=== PATIENT | male | born 1935 | race Caucasian/White ===

== ENCOUNTER → 2017-03-17 | Outpatient (CLI) | payer MEDICARE ==
[~2017-03-17] MED LIST: AMARYL1 MG PO; ASPIRIN CHILDRE81 MG PO; CARVEDILOL6.25 MG PO; CLEOCIN HCL150 MG PO; CORDARONE200 MG PO; COUMADIN0.5 MG PO; COUMADIN3 M1 PO; COUMADIN4 M2 PO; COZAAR25 M1 PO; DULCOLAX10 MG R; FERROUS SULFAT325 M1 PO; FLEET ADULT ENEM1 EA R; FUROSEMIDE40 MG PO; KLOR-CON M2020 MEQ PO; LEVAQUIN750 M1 PO; LIPITOR10 MG PO; LIPITOR20 MG PO; LOPRESSOR25 MG PO; MOM30 ML PO; NOVOLOG 70/30 M10 ML SC; NYSTATIN100000 U/M PO; PREDNISONE10 MG PO; PROTONIX40 MG PO; ROXICODONE5 MG PO
[2017-03-17 12:56] LABS: BILIRUBIN NEGATIVE (NEGATIVE); BLOOD 1+ (NEGATIVE); CLARITY CLEAR (CLEAR); COLOR YELLOW (YELLOW); GLUCOSE NEGATIVE (NEGATIVE); KETONE TRACE (NEGATIVE); NITRITE NEGATIVE (NEGATIVE); PH 5.5 (5.0-9.0); PROTEIN TRACE (NEGATIVE); UROBILINOGEN 0.2 E.U./dl (0.2-1.0)
[2017-03-17 13:05] LABS: BASO % 0.4 % (0.0-1.0); EOS # 0.2 10*3/uL (0.0-0.4); EOS % 1.9 % (1.0-4.0); HEMATOCRIT 39.6 % (42.0-52.0); LYMPH # 1.5 10*3/uL (1.3-4.4); LYMPH % 18.6 % (27.0-41.0); MEAN CELL VOLUME 94.3 fl (80.0-94.0); MEAN CORPUSCULAR HGB CONC 32.8 g/dl (33.0-37.0); MEAN PLATELET VOLUME 10.1 fl (9.6-12.3); MONO # 0.8 10*3/uL (0.1-1.0); MONO % 10.1 % (3.0-9.0); NEUT # 5.5 10*3/uL (2.3-7.9); NEUT % 68.7 % (47.0-73.0); PLATELET COUNT AUTOMATED 144 10*3/uL (130-400); RED CELL DISTRI WIDTH 13.9 % (0-14.5)
[2017-03-17 13:06] LABS: RBC 0-2 rbc/hpf (0-2); URINE TP/CRE RATIO 0.2 (<0.21)
[2017-03-17 13:07] LABS: LEUKO ESTERASE NEGATIVE (NEGATIVE); MUCOUS 1+
[2017-03-17 13:23] LABS: ALBUMIN 3.8 gm/dl (3.1-4.5); PHOSPHOROUS 2.6 mg/dL (2.5-4.9); POTASSIUM 5.2 mmol/L (3.5-5.1)
[2017-03-17 13:50] LABS: VITAMIN D, 25-HYDROXY 31.9 ng/mL (30-100)
[2017-03-17 13:51] LABS: PTH INTACT 279.9 pg/mL (14.0-72.0)
== END | disposition home or self-care (01) ==
LOC: LAB 12:31
PROVIDERS: Internal Medicine Nephrology
DX: N18.4 Chronic kidney disease, stage 4 (severe) (principal); N25.81 Secondary hyperparathyroidism of renal origin

== ENCOUNTER 2017-04-30 18:10 | Emergency (ER) | payer MEDICARE ==
[~2017-04-30] VITALS: Ht 172.7 cm; Wt 83.0 kg
[2017-04-30 18:34] VITALS: BP 136/58
== END 2017-04-30 21:24 | disposition home or self-care (01) ==
LOC: ED 18:10
DX: S51.811A Laceration without foreign body of right forearm, initial encounter (principal); Z23 Encounter for immunization; Z87.891 Personal history of nicotine dependence; Z95.1 Presence of aortocoronary bypass graft; Z90.49 Acquired absence of other specified parts of digestive tract; Z79.82 Long term (current) use of aspirin; Z79.01 Long term (current) use of anticoagulants; X50.9XXA Other and unspecified overexertion or strenuous movements or postures, initial encounter; Y93.89 Activity, other specified; Y92.9 Unspecified place or not applicable; Y99.9 Unspecified external cause status

== ENCOUNTER → 2017-09-27 | Outpatient (CLI) | payer MEDICARE ==
[2017-09-27 15:13] LABS: BILIRUBIN NEGATIVE (NEGATIVE); BLOOD TRACE-INTACT (NEGATIVE); CLARITY CLEAR (CLEAR); COLOR YELLOW (YELLOW); GLUCOSE NEGATIVE (NEGATIVE); KETONE NEGATIVE (NEGATIVE); LEUKO ESTERASE NEGATIVE (NEGATIVE); NITRITE NEGATIVE (NEGATIVE); UROBILINOGEN 0.2 E.U./dl (0.2-1.0)
[2017-09-27 15:21] LABS: URINE CREATININE RANDOM 84.9 mg/dL
[2017-09-27 15:22] LABS: BACTERIA 2+; EPITHELIAL CELLS 0-2
[2017-09-27 15:26] LABS: BASO % 0.3 % (0.0-1.0); EOS # 0.2 10*3/uL (0.0-0.4); EOS % 2.1 % (1.0-4.0); HEMATOCRIT 40.1 % (42.0-52.0); HEMOGLOBIN 13.1 g/dl (14.0-18.0); LYMPH # 1.3 10*3/uL (1.3-4.4); LYMPH % 16.5 % (27.0-41.0); MEAN CORPUSCULAR HGB CONC 32.7 g/dl (33.0-37.0); MEAN PLATELET VOLUME 10.2 fl (9.6-12.3); MONO # 0.7 10*3/uL (0.1-1.0); MONO % 8.4 % (3.0-9.0); NEUT # 5.8 10*3/uL (2.3-7.9); NEUT % 72.4 % (47.0-73.0); PLATELET COUNT AUTOMATED 140 10*3/uL (130-400); RED BLOOD COUNT 4.22 10*6/uL (4.50-5.90); RED CELL DISTRI WIDTH 14.2 % (0-14.5)
[2017-09-27 15:45] LABS: ALBUMIN 3.5 gm/dl (3.1-4.5); CREATININE 2.56 mg/dL (0.70-1.30); PHOSPHOROUS 2.6 mg/dL (2.5-4.9); POTASSIUM 5.2 mmol/L (3.5-5.1)
== END | disposition home or self-care (01) ==
LOC: LAB 14:13
PROVIDERS: Internal Medicine Nephrology
DX: N18.4 Chronic kidney disease, stage 4 (severe) (principal); N25.81 Secondary hyperparathyroidism of renal origin

== ENCOUNTER 2018-01-15 07:08 | Inpatient (IN) | payer MEDICARE ==
[~2018-01-15] VITALS: Ht 172.7 cm; Wt 82.7 kg
[2018-01-15] VITALS (8 sets, daily range): BP systolic 121–171; BP diastolic 60–88
--- NOTE | ~2018-01-15 | EKG ---
[place], [place] ELECTROCARDIOGRAM REPORT NAME: JAMI GUTHRIE UNIT #: [id number] ROOM: [facility] DOCTOR: HORACIO TERRY,KESHA BIRTHDATE: [birth year] DOS: 01/15/2018 TIME: 0719 hours. FINDINGS: 1. Sinus tachycardia at 102 beats per minute. 2. Left bundle-branch block with repolarization abnormality. 3. Possibility of an old anterior wall infarction to be entertained. 4. No previous tracing is available for comparison. KESHA LEONARD MD CM:EKGRPT:ELECTROCARDIOGRAM REPORT [id number] 48 KESHA LEONARD MD
--- NOTE | ~2018-01-15 | CON ---
[place], [place] REPORT OF CONSULTATION NAME: [facility]UTH[facility]E [id number] UNIT #: [id number] ROOM: [facility] DOCTOR: KESHA LEONARD MD BIRTHDATE: [birth year] DOS: HISTORY OF PRESENT ILLNESS: This is an 83-year-old -I[place]ian man with history of coronary artery disease. He had 4-vessel coronary artery bypass graft surgery done about 3 years ago. At that time, his LV ejection fraction was severely depressed. Subsequent echocardiogram did demonstrate increase in EF, but it declined again and he subsequently had an AICD implanted. He has chronic kidney disease stage 4, COPD, diabetes mellitus, essential hypertension, hyperlipidemia. He has never had a stroke. He came to the hospital because he had little difficulty breathing when he woke up yesterday morning. He normally walks about a mile a day, but recently after about 3/4 of mile he has to stop and then complete the rest of the walk after a short break. He has not had any chest pain, any palpitation, dizziness, nor has had any nausea, vomiting. He has not had a bowel movement for a couple of days. He thought this fullness in the belly may be causing difficulty with breathing. He does not smoke. SOCIAL HISTORY: He does drink a glass of wine every other day or so. HOME MEDICATIONS: Include aspirin 81 daily, atorvastatin 10 daily, carvedilol 6.25 mg b.i.d., losartan 25 daily, Protonix 40 daily, warfarin 4.5 mg daily. PHYSICAL EXAMINATION: GENERAL: This is a patient who is alert, oriented, funny as always. He is not in any distress. He is not tachypneic. Temperature is normal. There is no thyromegaly or finger clubbing. He is not cyanotic, nor jaundiced. VITAL SIGNS: Pulse is regular at 84 beats per minute, blood pressure 93/77, previous blood pressure was 126/71. NECK: Normal JVP. AJR is clearly negative. There is no carotid bruit. HEART: There is no cardiomegaly. No murmurs are present. EXTREMITIES: He has absolutely no edema in the lower extremities. RESPIRATORY: He is not tachypneic. Percussion note is normal. Auscultation reveals a few crackles in the bases. ABDOMEN: Supple, nontender. Liver is not enlarged and there is no bruit. Bowel sounds are normal. DIAGNOSTIC STUDIES: An ECG on admission demonstrated normal sinus rhythm at 102 beats per minute with intraventricular conduction defect/left bundle-branch block and probably concomitant left ventricular hypertrophy, ST segments are depressed with T-wave abnormality in lateral leads. An ECG that I read on November [address]-T wave abnormalities. Chest x-ray demonstrated modest degree of pulmonary edema. LABORATORY DATA: BUN 46, creatinine 2.52, potassium 4.3, sodium 143. Hemoglobin 13.1 grams. IMPRESSION: 1. This patient has ischemic cardiomyopathy and does have mild pulmonary edema. [place], [place] REPORT OF CONSULTATION NAME: JAMI GUTHRIE UNIT #: [id number] ROOM: [facility] DOCTOR: KESHA LEONARD MD BIRTHDATE: [birth year] He has received IV furosemide with improvement in his breathing. 2. Coronary artery disease, status post coronary artery bypass graft. This is asymptomatic. 3. Chronic kidney disease. This needs to be watched while the patient is being diuresed. I think when he is discharged home he should be sent home on small dose of furosemide, i.e. 20 mg daily while monitoring his renal function, which I do not think will change much. I thank you on this consult. KESHA LEONARD MD CM:CONSTR:REPORT OF CONSULTATION 1008 02/10/18 0818 interface
[2018-01-15 07:40] LABS: BASO % 0.5 % (0.0-1.0); EOS # 0.3 10*3/uL (0.0-0.4); EOS % 3.5 % (1.0-4.0); HEMATOCRIT 45.3 % (42.0-52.0); LYMPH # 2.3 10*3/uL (1.3-4.4); LYMPH % 27.4 % (27.0-41.0); MEAN CELL VOLUME 98.5 fl (80.0-94.0); MEAN CORPUSCULAR HGB 30.4 pg (27.0-31.0); MEAN CORPUSCULAR HGB CONC 30.9 g/dl (33.0-37.0); MEAN PLATELET VOLUME 10.2 fl (9.6-12.3); MONO # 0.8 10*3/uL (0.1-1.0); MONO % 9.3 % (3.0-9.0); NEUT % 58.9 % (47.0-73.0); PLATELET COUNT AUTOMATED 145 10*3/uL (130-400); WHITE BLOOD COUNT 8.5 10*3/uL (4.8-10.8)
[2018-01-15 07:49] LABS: ACT PARTIAL THROMBO TIME 28.8 SECONDS (20.8-31.5)
[2018-01-15 07:54] LABS: ABG HCO3 23.5 mmol/l (22-26); ABG O2 SATURATION 98.3 % (95-97); ARTERIAL BLOOD GAS PCO2 60.2 mmHg (35-45); ARTERIAL BLOOD GAS PH 7.211 (7.35-7.45)
[2018-01-15 07:55] LABS: ABG BASE EXCESS -5.4 mmol/L (-2.0-2.0)
[2018-01-15 08:01] LABS: ALBUMIN 3.5 gm/dl (3.1-4.5); CREATININE 2.67 mg/dL (0.70-1.30); TOTAL PROTEIN 7.6 gm/dL (6.4-8.2)
[2018-01-15 08:03] LABS: TROPONIN I 0.025 ng/ml (<0.045)
[2018-01-15 11:09] LABS: BILIRUBIN NEGATIVE (NEGATIVE); BLOOD TRACE-INTACT (NEGATIVE); CLARITY SL CLOUDY (CLEAR); COLOR YELLOW (YELLOW); GLUCOSE NEGATIVE (NEGATIVE); KETONE NEGATIVE (NEGATIVE); LEUKO ESTERASE NEGATIVE (NEGATIVE); NITRITE NEGATIVE (NEGATIVE); SPECIFIC GRAVITY 1.015 (1.005-1.030); UROBILINOGEN 0.2 E.U./dl (0.2-1.0)
[2018-01-15 11:23] LABS: BACTERIA 1+
[2018-01-16] VITALS: BP 124/63
[2018-01-16 04:00] VITALS: BP 126/71
[2018-01-16 06:33] LABS: BASO % 0.4 % (0.0-1.0); EOS # 0.2 10*3/uL (0.0-0.4); EOS % 2.8 % (1.0-4.0); HEMATOCRIT 40.5 % (42.0-52.0); HEMOGLOBIN 13.1 g/dl (14.0-18.0); LYMPH # 1.4 10*3/uL (1.3-4.4); LYMPH % 17.5 % (27.0-41.0); MEAN CORPUSCULAR HGB 30.5 pg (27.0-31.0); MEAN CORPUSCULAR HGB CONC 32.3 g/dl (33.0-37.0); MEAN PLATELET VOLUME 10.5 fl (9.6-12.3); MONO % 11.7 % (3.0-9.0); NEUT # 5.5 10*3/uL (2.3-7.9); NEUT % 67.1 % (47.0-73.0); PLATELET COUNT AUTOMATED 119 10*3/uL (130-400); RED CELL DISTRI WIDTH 14.1 % (0-14.5); WHITE BLOOD COUNT 8.2 10*3/uL (4.8-10.8)
[2018-01-16 06:38] LABS: MEAN CELL VOLUME 94.2 fl (80.0-94.0)
[2018-01-16 06:40] LABS: ALBUMIN 3.1 gm/dl (3.1-4.5); POTASSIUM 4.3 mmol/L (3.5-5.1)
[2018-01-16 06:43] LABS: CREATININE 2.52 mg/dL (0.70-1.30); TOTAL PROTEIN 6.7 gm/dL (6.4-8.2)
[2018-01-16 08:00] VITALS: BP 93/77
[2018-01-16] MEDS ORDERED: LASIX20 MG PO (11:22)
== END 2018-01-16 11:48 | disposition home or self-care (01) | DRG 291 ==
LOC: ED 07:08 → EDHOLD 10:40 → ICCU 11:08
PROVIDERS: Internal Medicine; Student in an Organized Health Care Education/Training Program
DX: I13.0 Hypertensive heart and chronic kidney disease with heart failure and stage 1 through stage 4 chronic kidney disease, or unspecified chronic kidney disease (principal); N17.0 Acute kidney failure with tubular necrosis; J96.90 Respiratory failure, unspecified, unspecified whether with hypoxia or hypercapnia; I50.43 Acute on chronic combined systolic (congestive) and diastolic (congestive) heart failure; N18.4 Chronic kidney disease, stage 4 (severe); E11.22 Type 2 diabetes mellitus with diabetic chronic kidney disease; J44.9 Chronic obstructive pulmonary disease, unspecified; I25.5 Ischemic cardiomyopathy; N20.0 Calculus of kidney; I25.10 Atherosclerotic heart disease of native coronary artery without angina pectoris; E78.5 Hyperlipidemia, unspecified; Z95.1 Presence of aortocoronary bypass graft; Z90.49 Acquired absence of other specified parts of digestive tract; Z95.810 Presence of automatic (implantable) cardiac defibrillator; Z87.891 Personal history of nicotine dependence; Z79.01 Long term (current) use of anticoagulants; Z79.82 Long term (current) use of aspirin; Z79.899 Other long term (current) drug therapy; Z82.49 Family history of ischemic heart disease and other diseases of the circulatory system; Z83.3 Family history of diabetes mellitus

== ENCOUNTER 2018-02-03 15:39 | Emergency (ER) | payer MEDICARE ==
[~2018-02-03] VITALS: Ht 172.7 cm; Wt 79.8 kg
[~2018-02-03 15:39] MED LIST changes: +LASIX20 MG PO
[2018-02-03 15:51] VITALS: BP 157/69
[2018-02-03 16:13] LABS: BASO % 0.4 % (0.0-1.0); EOS # 0.3 10*3/uL (0.0-0.4); EOS % 3.5 % (1.0-4.0); HEMATOCRIT 40.1 % (42.0-52.0); HEMOGLOBIN 12.8 g/dl (14.0-18.0); LYMPH # 1.2 10*3/uL (1.3-4.4); LYMPH % 17.1 % (27.0-41.0); MEAN CELL VOLUME 95.9 fl (80.0-94.0); MEAN CORPUSCULAR HGB 30.6 pg (27.0-31.0); MEAN CORPUSCULAR HGB CONC 31.9 g/dl (33.0-37.0); MEAN PLATELET VOLUME 9.6 fl (9.6-12.3); MONO # 0.9 10*3/uL (0.1-1.0); MONO % 12.3 % (3.0-9.0); NEUT # 4.7 10*3/uL (2.3-7.9); NEUT % 66.4 % (47.0-73.0); PLATELET COUNT AUTOMATED 125 10*3/uL (130-400); RED BLOOD COUNT 4.18 10*6/uL (4.50-5.90); RED CELL DISTRI WIDTH 13.9 % (0-14.5); WHITE BLOOD COUNT 7.1 10*3/uL (4.8-10.8)
[2018-02-03] MEDS ORDERED: VITAMIN D22000 UNIT PO (16:18)
[2018-02-03 16:21] LABS: INTERNATIONAL NORM RATIO 1.7 (2.0-3.5)
[2018-02-03 16:29] LABS: ALBUMIN 3.6 gm/dl (3.1-4.5); CREATININE 2.23 mg/dL (0.70-1.30)
[2018-02-03 16:30] LABS: TROPONIN I 0.021 ng/ml (<0.045)
== END 2018-02-03 17:13 | disposition home or self-care (01) ==
LOC: ED 15:39
PROVIDERS: Student in an Organized Health Care Education/Training Program
DX: R94.31 Abnormal electrocardiogram [ECG] [EKG] (principal); I25.10 Atherosclerotic heart disease of native coronary artery without angina pectoris; I50.9 Heart failure, unspecified; J44.9 Chronic obstructive pulmonary disease, unspecified; E78.5 Hyperlipidemia, unspecified; E11.9 Type 2 diabetes mellitus without complications; Z87.442 Personal history of urinary calculi; Z90.49 Acquired absence of other specified parts of digestive tract; Z79.82 Long term (current) use of aspirin; Z79.899 Other long term (current) drug therapy; Z95.1 Presence of aortocoronary bypass graft

== ENCOUNTER 2018-02-06 23:28 | Inpatient (IN) | payer MEDICARE ==
[~2018-02-06] VITALS: Ht 173 cm; Wt 80.7 kg
--- NOTE | ~2018-02-06 | CON ---
[place], [place] REPORT OF CONSULTATION NAME: JAMI [facility]UTHRIE [facility]: [id number] UNIT #: [id number] ROOM: [facility] DOCTOR: KESHA LEONARD MD BIRTHDATE: [birth year] DOS: 02/07/2018 HISTORY OF PRESENT ILLNESS: This is an 83-year-old -[place] gentleman who I found delight to talk to. He has coronary artery disease and had multivessel CABG done a couple of years ago. He was hemodynamically unstable and left heart catheterization was done. An intraaortic balloon was implanted and he had a 3-vessel CABG done. DONALDSON to LAD and SVG to other arteries. There is a sequential graft to RCA and posterior descending artery. His EF had increased, but subsequently declined again requiring an AICD implantation. He also has had atrial fibrillation, but has never had a stroke. He was in this hospital about 3-4 weeks ago with shortness of breath and chest x-ray demonstrated mild pulmonary edema at that time. He has chronic kidney disease stage 4 and has had hyperkalemia, also has essential hypertension, diabetes mellitus, COPD, and renal artery stenosis as well. He does not drink nor does he smoke now. not long ago. He came to the Emergency Department because of shortness of breath and during workup his troponin was found to be mildly elevated at 0.27 and I was asked to participate in the care of this patient. He did not report any chest pain or palpitation. He had an AICD done, it did not discharge. He does not recall any fever or chills and no acute neurological symptoms. HOME MEDICATIONS: Include carvedilol 6.25 mg b.i.d., atorvastatin 10 daily, aspirin 81 mg, warfarin 4.5 mg daily. Now, he is also on furosemide, milk of magnesia, and temazepam. PHYSICAL EXAMINATION: GENERAL: The patient is very pleasant, alert, oriented, very comfortable, rather talkative, and very pleasant man. He is not anemic. There is no jaundice or cyanosis. VITAL SIGNS: Pulse is regular at 96 beats per minute, blood pressure 116/53. NECK: JVP is normal. AJR is negative. EXTREMITIES: There is no edema in the lower extremities. CARDIAC: Cardiac auscultation reveals no murmurs. RESPIRATORY: He is not tachypneic. He has quite a few crackles in both lungs, more so on the right side. ABDOMEN: Supple, nontender. No organomegaly. There is no bruit. LABORATORY DATA: An ECG showed normal sinus rhythm with left bundle branch block and concomitant left ventricular hypertrophy and repolarization abnormality. Troponin I level was 0.20, peng to 0.23. His previous troponin I levels have been higher than this or so on almost every admission. Chest x-ray was reviewed by me, it shows mild pulmonary edema. Blood glucose 229 mg/dL, BUN 39, creatinine 2.56, which is baseline. [place], [place] REPORT OF CONSULTATION NAME: JAMI GUTHRIE UNIT #: [id number] ROOM: [facility] DOCTOR: KESHA LEONARD MD BIRTHDATE: [birth year] IMPRESSION: This is a patient with coronary artery disease and cardiomyopathy, has slight increased troponin I level and this is chronically elevated and most likely due to chronic systolic heart failure and rather advanced chronic kidney disease. He does not require any further cardiac workup. I would give him IV furosemide for a couple of days while monitoring renal function to see if pulmonary edema would resolve without adversely affecting his renal function. I thank you for this consult. KESHA LEONARD MD CM:CONSTR:REPORT OF CONSULTATION 1411 02/08/18 0028 interface
--- NOTE | ~2018-02-06 | EKG ---
[place], [place] ELECTROCARDIOGRAM REPORT NAME: JAMI GUTHRIE UNIT #: [id number] ROOM: [facility] DOCTOR: HORACIO TERRY,KESHA BIRTHDATE: [birth year] DOS: 02/06/2018 TIME: 2352 hours. FINDINGS: 1. Sinus tachycardia at 110 beats per minute. 2. Left ventricular hypertrophy with repolarization changes. 3. An intraventricular conduction defect, probably left bundle branch block and possible concomitant LVH. 4. No previous tracing is available for comparison. KESHA LEONARD MD CM:EKGRPT:ELECTROCARDIOGRAM REPORT 1318 1452 KESHA LEONARD MD
--- NOTE | ~2018-02-06 | PR ---
[place], [place] PROGRESS NOTE NAME: [id number] UNIT #: [id number] ROOM: [facility] DOCTOR: KRITSEN FERREIRA MD BIRTHDATE: [birth year] DOS: 02/08/2018 SUBJECTIVE: The patient examined in the Intensive Care Unit. I am covering for Dr. Royal. The patient is an 83-year-old with a history of bypass surgery, left ventricular dysfunction. The patient had LV dysfunction and has declined AICD. The patient also has had atrial fibrillation, never had a CVA and was recently in the hospital with shortness of breath. Mild pulmonary edema at that time. Does have a history of diabetes, hypertension, COPD, appears to be comfortable at this point. I's and O's is negative 500 mL, started on IV diuretics. His breathing is improved. Blood pressure is 140/60. REVIEW OF SYSTEMS: Review of systems is somewhat limited as the patient is in Intensive Care Unit. He denies any chest discomfort. Does have shortness of breath. No GI or issues. PHYSICAL EXAMINATION: VITAL SIGNS: Blood pressure as mentioned. NECK: Supple, elevated JVD. LUNGS: Diminished air entry. Respiratory, he is not tachypneic. HEART: Heart sounds are regular. No murmurs. NEUROLOGICAL: Appears to be stable. LABORATORY DATA: Shows a hemoglobin 12.5, hematocrit 38.9. Sodium 142, potassium 4.1, BUN 47, creatinine 2.4. INR is 1.9. IMPRESSION: The patient with atrial fibrillation, history of systolic congestive heart failure, history of bypass surgery. RECOMMENDATIONS: Continue the present care. Continue gentle IV diuresis. EKG shows left ventricular hypertrophy with nonspecific ST-T abnormalities. Continue strict I's and O's. Continue the other medications, which includes Lipitor, Coumadin, Lasix, carvedilol, aspirin, magnesium and we will follow up. KRISTEN FERREIRA MD CM:PNTRANS 0725 1 KRISTEN FERREIRA MD 02/08/18801 interface
--- NOTE | ~2018-02-06 | WRIGHTHP ---
[place], [place] PATIENT HISTORY AND PHYSICAL EXAM NAME: JAMI GUTHRIE [facility] #: [id number] UNIT #: [id number] ROOM: [facility] DOCTOR: ANASTACIO TUBBS MD BIRTHDATE: [birth year] DOS: 02/07/2018 HISTORY OF PRESENT ILLNESS: The patient has been admitted to the hospital late night with difficulty in breathing. The patient was doing fairly good during the daytime and ambulating and doing everything. He went to bed and then after some time, he started having difficulty in breathing and he was very much short of breath and was brought to Emergency Department where on investigation he was found to be having acute congestive heart failure and needed to be admitted to the hospital. The patient denies any chest pain and no headache, no fever or chills. No cough. MEDICATIONS: The patient is taking following medications at home: Aspirin 81 mg, carvedilol 6.25 mg twice daily, Lipitor 10 mg daily, Coumadin 4 mg daily and vitamin D 2 mg daily. PAST MEDICAL HISTORY: He has past medical history of abdominal pain, acute hyponatremia, acute respiratory failure, hypoxia, acute kidney disease, acute tubular necrosis, coronary heart disease, chest pain, congestive heart failure, COPD with emphysema, diabetes, hypertension, hyperkalemia, osteoarthritis, renal artery stenosis, severe sepsis with acute organ dysfunction in the past and atrial fibrillation. SOCIAL HISTORY: The patient does not drink. He is a former smoker; however, does not smoke anything. PAST SURGICAL HISTORY: Cholecystectomy, CABG and internal cardiac defibrillator placement. FAMILY HISTORY: There is history of myocardial infarction in the family. PHYSICAL EXAMINATION: GENERAL: The patient is conscious, alert and oriented at present, does not seem to be in any distress. VITAL SIGNS: His blood pressure is 102/56. He is on dopamine drip, pulse is 74, respirations 23, temperature 97. HEENT: Unremarkable. NECK: Veins are somewhat distended. Carotid pulsation is normal. HEART: Regular. LUNGS: Showing marked basal crepitations in both sides. ABDOMEN: Liver slightly enlarged and nontender. Rest of the abdominal examination is normal. EXTREMITIES: The patient is having 1+ edema of the leg. NEUROLOGIC: No neurological deficit observed. LABORATORY DATA: CBC showed white count 7100, hemoglobin was 12.8, hematocrit 40.1. Protime is 18.1. Comprehensive metabolic profile showed glucose 101, BUN 38, creatinine 0.25, GFR 28, chloride 109, other values are normal. Troponin level on admission was 0.021 and it has gone up from there today to 0.202. Lactic acid is 1.7. CBC shows white count 13.0 today. Chest x-ray shows left pleural effusion with bibasilar atelectasis and comprehensive metabolic profile [place], [place] PATIENT HISTORY AND PHYSICAL EXAM NAME: JAMI GUTHRIE [facility] #: [id number] UNIT #: [id number] ROOM: [facility] DOCTOR: ANASTACIO TUBBS MD BIRTHDATE: [birth year] today show glucose 229, BUN 39, creatinine 2.56, GFR 24, chloride 109, calcium 8.2, magnesium 2.2. Other values are normal. DIAGNOSES: Acute congestive heart failure with atherosclerotic heart disease, hypertension, with chronic obstructive pulmonary disease, chronic renal disease, status post CABG, diabetes mellitus, elevated troponin level, hyperlipidemia, pleural effusion, and respiratory difficulty. PLAN OF TREATMENT: The patient will be admitted to the ICU and he will be put on Lasix and nitro drip 0.625 mg IV, propofol IV, metoprolol tartrate 1.25 mg daily. ANASTACIO TUBBS MD CM:HISPHYS:PATIENT HISTORY AND PHYSICAL EXAMINATION 0804 0912 ANASTACIO TUBBS MD 03/03/18 0746 interface
--- NOTE | ~2018-02-06 | EKG ---
[place], [place] ELECTROCARDIOGRAM REPORT NAME: JAMI GUTHRIE UNIT #: [id number] ROOM: [facility] DOCTOR: KESHA LEONARD MD BIRTHDATE: [birth year] DOS: 02/07/2018 TIME: 0044 hours. FINDINGS: 1. Normal sinus rhythm at 91 beats per minute. 2. Poor R-wave progression is present reflective of an old anterior wall myocardial infarction. Also, consider inferior wall ischemia. 3. A PVC is also present. 4. When compared with ECG of the previous day, R-wave progression in lateral chest pain is very slow probably due to lead misplacement. KESHA LEONARD MD CM:EKGRPT:ELECTROCARDIOGRAM REPORT 1318 1455 KESHA LEONARD MD
[~2018-02-06 23:28] MED LIST changes: +VITAMIN D22000 UNIT PO
[2018-02-06 23:34] VITALS: BP 190/99
[2018-02-06 23:40] VITALS: BP 192/87
[2018-02-07] VITALS (18 sets, daily range): BP systolic 95–165; BP diastolic 41–84
[2018-02-07 00:14] LABS: BASO % 0.3 % (0.0-1.0); EOS # 0.4 10*3/uL (0.0-0.4); EOS % 2.8 % (1.0-4.0); HEMATOCRIT 45.2 % (42.0-52.0); LYMPH # 3.9 10*3/uL (1.3-4.4); LYMPH % 29.9 % (27.0-41.0); MEAN CELL VOLUME 98.7 fl (80.0-94.0); MEAN CORPUSCULAR HGB 30.6 pg (27.0-31.0); MEAN PLATELET VOLUME 10.1 fl (9.6-12.3); MONO % 7.5 % (3.0-9.0); NEUT # 7.7 10*3/uL (2.3-7.9); NEUT % 59.1 % (47.0-73.0); PLATELET COUNT AUTOMATED 152 10*3/uL (130-400); RED BLOOD COUNT 4.58 10*6/uL (4.50-5.90)
[2018-02-07 00:22] LABS: ACT PARTIAL THROMBO TIME 27.6 SECONDS (20.8-31.5); INTERNATIONAL NORM RATIO 1.6 (2.0-3.5)
[2018-02-07 00:30] LABS: ALBUMIN 3.8 gm/dl (3.1-4.5); CREATININE 2.56 mg/dL (0.70-1.30); TOTAL PROTEIN 7.6 gm/dL (6.4-8.2)
[2018-02-07 00:31] LABS: TROPONIN I 0.031 ng/ml (<0.045)
[2018-02-08] VITALS: BP 127/56
[2018-02-08 04:00] VITALS: BP 142/63
[2018-02-08 06:25] LABS: BASO % 0.3 % (0.0-1.0); EOS # 0.3 10*3/uL (0.0-0.4); EOS % 3.6 % (1.0-4.0); HEMOGLOBIN 12.5 g/dl (14.0-18.0); LYMPH # 1.6 10*3/uL (1.3-4.4); LYMPH % 21.7 % (27.0-41.0); MEAN CORPUSCULAR HGB 30.6 pg (27.0-31.0); MEAN CORPUSCULAR HGB CONC 32.1 g/dl (33.0-37.0); MEAN PLATELET VOLUME 10.5 fl (9.6-12.3); MONO % 13.8 % (3.0-9.0); NEUT # 4.5 10*3/uL (2.3-7.9); NEUT % 60.3 % (47.0-73.0); PLATELET COUNT AUTOMATED 107 10*3/uL (130-400); RED BLOOD COUNT 4.08 10*6/uL (4.50-5.90); RED CELL DISTRI WIDTH 14.1 % (0-14.5); WHITE BLOOD COUNT 7.5 10*3/uL (4.8-10.8)
[2018-02-08 06:33] LABS: HEMATOCRIT 38.9 % (42.0-52.0); MEAN CELL VOLUME 95.3 fl (80.0-94.0)
[2018-02-08 06:34] LABS: CREATININE 2.46 mg/dL (0.70-1.30); PHOSPHOROUS 2.7 mg/dL (2.5-4.9); POTASSIUM 4.1 mmol/L (3.5-5.1)
[2018-02-08 06:42] LABS: INTERNATIONAL NORM RATIO 1.9 (2.0-3.5)
[2018-02-08 08:00] VITALS: BP 142/67
[2018-02-08 12:00] VITALS: BP 151/70
[2018-02-08] MEDS ORDERED: LASIX20 MG PO (13:01)
== END 2018-02-08 14:12 | disposition home or self-care (01) | DRG 291 ==
LOC: ED 23:28 → EDHOLD 02-07 00:40 → ICCU 02-07 00:40
PROVIDERS: Family Medicine; Physician Assistant; Student in an Organized Health Care Education/Training Program
PROC: 5A09357 Assistance with Respiratory Ventilation, Less than 24 Consecutive Hours, Continuous Positive Airway Pressure (ICD-10-PCS; principal; 2018-02-07)
DX: I13.0 Hypertensive heart and chronic kidney disease with heart failure and stage 1 through stage 4 chronic kidney disease, or unspecified chronic kidney disease (principal); I50.23 Acute on chronic systolic (congestive) heart failure; R65.11 Systemic inflammatory response syndrome (SIRS) of non-infectious origin with acute organ dysfunction; D69.6 Thrombocytopenia, unspecified; E11.65 Type 2 diabetes mellitus with hyperglycemia; E11.22 Type 2 diabetes mellitus with diabetic chronic kidney disease; I95.9 Hypotension, unspecified; N18.4 Chronic kidney disease, stage 4 (severe); E87.8 Other disorders of electrolyte and fluid balance, not elsewhere classified; E83.41 Hypermagnesemia; I42.9 Cardiomyopathy, unspecified; D64.9 Anemia, unspecified; D72.829 Elevated white blood cell count, unspecified; R00.0 Tachycardia, unspecified; D72.810 Lymphocytopenia; D72.821 Monocytosis (symptomatic); R79.1 Abnormal coagulation profile; I48.91 Unspecified atrial fibrillation; R74.8 Abnormal levels of other serum enzymes; M19.072 Primary osteoarthritis, left ankle and foot; I70.1 Atherosclerosis of renal artery; J44.9 Chronic obstructive pulmonary disease, unspecified; E78.5 Hyperlipidemia, unspecified; I25.10 Atherosclerotic heart disease of native coronary artery without angina pectoris; E66.3 Overweight; Z90.49 Acquired absence of other specified parts of digestive tract; Z95.1 Presence of aortocoronary bypass graft; Z95.810 Presence of automatic (implantable) cardiac defibrillator; Z87.01 Personal history of pneumonia (recurrent); Z87.442 Personal history of urinary calculi; Z87.891 Personal history of nicotine dependence; Z83.3 Family history of diabetes mellitus; Z82.49 Family history of ischemic heart disease and other diseases of the circulatory system; Z79.899 Other long term (current) drug therapy; Z79.01 Long term (current) use of anticoagulants; Z68.27 Body mass index [BMI] 27.0-27.9, adult

== ENCOUNTER → 2018-02-15 | Outpatient (CLI) | payer MEDICARE ==
[~2018-02-15] MED LIST changes: +CYCLOBENZAPRINE10 MG PO
[2018-02-15 09:36] LABS: POTASSIUM 4.7 mmol/L (3.5-5.1)
[2018-02-15 09:44] LABS: ALBUMIN 3.7 gm/dl (3.1-4.5); CREATININE 2.39 mg/dL (0.70-1.30); PHOSPHOROUS 3.4 mg/dL (2.5-4.9)
== END | disposition home or self-care (01) ==
LOC: LAB 08:04
PROVIDERS: Internal Medicine Nephrology
DX: N18.4 Chronic kidney disease, stage 4 (severe) (principal)

== ENCOUNTER → 2018-02-19 | Outpatient (CLI) | payer MEDICARE ==
[2018-02-19 07:55] LABS: BASO % 0.5 % (0.0-1.0); EOS # 0.3 10*3/uL (0.0-0.4); EOS % 3.3 % (1.0-4.0); HEMATOCRIT 42.2 % (42.0-52.0); HEMOGLOBIN 13.7 g/dl (14.0-18.0); LYMPH # 1.4 10*3/uL (1.3-4.4); LYMPH % 19.2 % (27.0-41.0); MEAN CELL VOLUME 95.7 fl (80.0-94.0); MEAN CORPUSCULAR HGB 31.1 pg (27.0-31.0); MEAN CORPUSCULAR HGB CONC 32.5 g/dl (33.0-37.0); MEAN PLATELET VOLUME 10.2 fl (9.6-12.3); MONO # 0.8 10*3/uL (0.1-1.0); MONO % 10.8 % (3.0-9.0); NEUT % 65.9 % (47.0-73.0); PLATELET COUNT AUTOMATED 144 10*3/uL (130-400); RED BLOOD COUNT 4.41 10*6/uL (4.50-5.90); RED CELL DISTRI WIDTH 13.9 % (0-14.5); WHITE BLOOD COUNT 7.5 10*3/uL (4.8-10.8)
[2018-02-19 08:54] LABS: BILIRUBIN NEGATIVE (NEGATIVE); BLOOD NEGATIVE (NEGATIVE); CLARITY CLEAR (CLEAR); COLOR YELLOW (YELLOW); GLUCOSE NEGATIVE (NEGATIVE); KETONE NEGATIVE (NEGATIVE); LEUKO ESTERASE NEGATIVE (NEGATIVE); NITRITE NEGATIVE (NEGATIVE); UROBILINOGEN 0.2 E.U./dl (0.2-1.0)
[2018-02-19 09:27] LABS: BACTERIA TRACE
== END | disposition home or self-care (01) ==
LOC: LAB 07:24
PROVIDERS: Internal Medicine Nephrology
DX: N18.4 Chronic kidney disease, stage 4 (severe) (principal); E55.9 Vitamin D deficiency, unspecified

== ENCOUNTER 2018-03-04 18:56 | Emergency (ER) | payer MEDICARE ==
[~2018-03-04] VITALS: Ht 172.7 cm; Wt 79.4 kg
[~2018-03-04 18:56] MED LIST changes: -CYCLOBENZAPRINE10 MG PO
[2018-03-04 22:00] VITALS: BP 132/64
[2018-03-04] MEDS ORDERED: CYCLOBENZAPRINE10 MG PO (22:08)
== END 2018-03-04 22:15 | disposition home or self-care (01) ==
LOC: ED 18:56
DX: S33.5XXA Sprain of ligaments of lumbar spine, initial encounter (principal); I13.0 Hypertensive heart and chronic kidney disease with heart failure and stage 1 through stage 4 chronic kidney disease, or unspecified chronic kidney disease; E11.22 Type 2 diabetes mellitus with diabetic chronic kidney disease; N18.4 Chronic kidney disease, stage 4 (severe); I50.9 Heart failure, unspecified; I25.10 Atherosclerotic heart disease of native coronary artery without angina pectoris; E78.5 Hyperlipidemia, unspecified; E78.00 Pure hypercholesterolemia, unspecified; E66.3 Overweight; M19.072 Primary osteoarthritis, left ankle and foot; Z90.49 Acquired absence of other specified parts of digestive tract; Z68.29 Body mass index [BMI] 29.0-29.9, adult; Z87.442 Personal history of urinary calculi; Z95.1 Presence of aortocoronary bypass graft; Z87.891 Personal history of nicotine dependence; Z79.82 Long term (current) use of aspirin; Z79.01 Long term (current) use of anticoagulants; Z79.899 Other long term (current) drug therapy; X50.1XXA Overexertion from prolonged static or awkward postures, initial encounter; Y93.01 Activity, walking, marching and hiking; Y92.89 Other specified places as the place of occurrence of the external cause; Y99.9 Unspecified external cause status

== ENCOUNTER 2018-05-29 02:34 | Inpatient (IN) | payer MEDICARE ==
[2018-05-29] VITALS (10 sets, daily range): BP systolic 129–253; BP diastolic 53–98
[~2018-05-29] VITALS: Ht 172.7 cm; Wt 81.4 kg
--- NOTE | ~2018-05-29 | EKG ---
[place], [place] ELECTROCARDIOGRAM REPORT NAME: JAMI GUTHRIE UNIT #: [id number] ROOM: [facility] DOCTOR: KAREY DRAFT REPORT BIRTHDATE: [birth year] [facility] Test Date: 2018-05-29 Test Time: 05:25:55 Pat Name: JAMI GUTHRIE Department: [facility] Room: 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
--- NOTE | ~2018-05-29 | EKG ---
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: Sulma Moncada : 1935 Requested By: CORRY SCHAFER Order Number: [id number] Reading MD: Rufina Royal MD Measurements Intervals [place] Rate: 61 P: 45 AL: 219 QRS: 6 QRSD: 120 T: 264 QT: 463 QTc: 467 Interpretive Statements Sinus rhythm with A sensing and Ventricular-paced complexes No further rhythm analysis attempted due to paced rhythm Borderline prolonged [place] interval LVH with IVCD and secondary repol abnrm Compared to ECG 04/24/2018 16:18:19 Sinus rhythm no longer present Atrial premature complex(es) no longer present Electronically Signed On 05-30-2018 14:03:33 PDT by Rufina Royal MD CM:EKGRPT:ELECTROCARDIOGRAM REPORT 0813 1403 CORRY MCCRAY DRAFT REPORT CORRY SCHAFER DO
--- NOTE | ~2018-05-29 | EKG ---
[place], [place] ELECTROCARDIOGRAM REPORT NAME: JAMI GUTHRIE UNIT #: [id number] ROOM: [facility] DOCTOR: KAREY DRAFT REPORT BIRTHDATE: [birth year] [facility] Test Date: 2018-05-29 Test Time: 02:48:44 Pat Name: JAMI GUTHRIE Department: ER Room: 3 Gender: M Political Reporter: Manfred Jerez : 1935 Requested By: CORRY SCHAFER Order Number: [id number] Reading MD: Rufina Royal MD Measurements Intervals [place] Rate: 89 P: 76 [place]: 215 QRS: 21 QRSD: 110 T: 247 QT: 365 QTc: 445 Interpretive Statements Sinus rhythm Borderline prolonged [place] interval LVH with secondary repolarization abnormality Anterior Q waves, possibly due to LVH Compared to ECG 04/24/2018 16:18:19 Q waves now present Atrial premature complex(es) no longer present Electronically Signed On 05-30-2018 14:00:35 PDT by Rufina Royal MD CM:EKGRPT:ELECTROCARDIOGRAM REPORT 0248 1400 CORRY MCCRAY DRAFT REPORT CORRY SCHAFER DO
--- NOTE | ~2018-05-29 | WRIGHTHP ---
[place], [place] PATIENT HISTORY AND PHYSICAL EXAM NAME: JAMI GUTHRIE [facility] #: [id number] UNIT #: [id number] ROOM: [facility] DOCTOR: ANASTACIO TUBBS MD BIRTHDATE: [birth year] DOS: 05/29/2018 HISTORY OF PRESENT ILLNESS: The patient has been admitted to hospital last night with a history of acute difficulty in breathing. He woke up from the bed with acute difficulty in breathing and could not catch his breath and came to the Emergency Department from where he is admitted to the hospital, diagnosed with severe sepsis and respiratory failure with pneumonia. The patient denies any chest pain. He is complaining of some pain in the epigastrium and he is also given history of fever and chills. The patient was feeling fairly good yesterday and he was able to ambulate and walk without any problem. He denies any cough during the daytime. The patient was only recently discharged from the hospital. At that time also, he was treated with acute respiratory infection with sepsis. The patient is positive chronic systolic and diastolic congestive heart failure, acute respiratory failure with hypoxia, coronary heart disease, chronic kidney disease, chronic obstructive pulmonary disease, diabetes, essential hypertension, hyperlipidemia, hyperglycemia, hyperkalemia, hypertensive urgency kidney stone, and osteoarthritis. PAST SURGICAL HISTORY: Includes cholecystectomy, CABG and an internal cardiac defibrillator placed, CABG and heart stent placement. SOCIAL HISTORY: The patient drinks moderately, not too much, only one glass of wine off and on, but he does not smoke. FAMILY HISTORY: Father and mother both , cause none known. History of myocardial infarction and diabetes in the family. PHYSICAL EXAMINATION: GENERAL: The patient is conscious, alert and oriented, does not seem to be in any distress at present. VITAL SIGNS: His pulse is 78, respirations 28, blood pressure is 191/81, and oxygen is 95. HEENT: Unremarkable. No glandular enlargement. NECK: Trachea central. Neck veins are not distended. HEART: Regular. LUNGS: Showing occasional rhonchi with some wheezing at the bases. ABDOMEN: Not distended, slight tenderness in the epigastrium. Liver is slightly enlarged. Rest of the abdominal examination is normal. EXTREMITIES: There is no edema of the legs. LABORATORY DATA: His comprehensive metabolic profile shows chloride 110, BUN 43, creatinine 2.39; GFR 26, indicating chronic renal failure; glucose of 154. Lactic acid is 0.9, calcium is 8.1, total bilirubin is 2.3, troponin level is 0.25. CBC is fairly normal. His chest x-ray shows small left pleural effusion with bilateral patchy atelectasis. DIAGNOSES: Sepsis with respiratory failure with pneumonitis and pleural effusion with essential hypertension, congestive and chronic renal failure and hypoxia. [place], [place] PATIENT HISTORY AND PHYSICAL EXAM NAME: JAMI GUTHRIE [facility] #: [id number] UNIT #: [id number] ROOM: [facility] DOCTOR: ANASTACIO TUBBS MD BIRTHDATE: [birth year] PLAN OF TREATMENT: The patient will be admitted to hospital, will be observed very closely with routine ICU protocol and was started on his home medication, given oxygen to keep his pulse oximetry at the proper level. ANASTACIO TUBBS MD CM:HISPHYS:PATIENT HISTORY AND PHYSICAL EXAMINATION 1053 1412 ANASTACIO TUBBS MD 05/29/18 1410 interface
[~2018-05-29 02:34] MED LIST changes: +CYCLOBENZAPRINE10 MG PO
[2018-05-29 03:01] LABS: BASO # 0.1 10*3/uL (0.0-0.1); BASO % 0.5 % (0.0-1.0); EOS # 0.3 10*3/uL (0.0-0.4); EOS % 3.5 % (1.0-4.0); HEMATOCRIT 44.5 % (42.0-52.0); HEMOGLOBIN 13.9 g/dl (14.0-18.0); LYMPH # 2.2 10*3/uL (1.3-4.4); LYMPH % 24.3 % (27.0-41.0); MEAN CORPUSCULAR HGB 30.6 pg (27.0-31.0); MEAN CORPUSCULAR HGB CONC 31.2 g/dl (33.0-37.0); MEAN PLATELET VOLUME 10.2 fl (9.6-12.3); MONO # 0.8 10*3/uL (0.1-1.0); MONO % 9.1 % (3.0-9.0); NEUT # 5.7 10*3/uL (2.3-7.9); NEUT % 62.2 % (47.0-73.0); PLATELET COUNT AUTOMATED 143 10*3/uL (130-400); RED BLOOD COUNT 4.54 10*6/uL (4.50-5.90); RED CELL DISTRI WIDTH 14.1 % (0-14.5); WHITE BLOOD COUNT 9.1 10*3/uL (4.8-10.8)
[2018-05-29 03:11] LABS: ACT PARTIAL THROMBO TIME 32.8 SECONDS (20.8-31.5); INTERNATIONAL NORM RATIO 2.2 (2.0-3.5)
[2018-05-29 03:18] LABS: ALBUMIN 3.6 gm/dl (3.1-4.5); CREATININE 2.39 mg/dL (0.70-1.30); POTASSIUM 4.9 mmol/L (3.5-5.1); TOTAL PROTEIN 7.7 gm/dL (6.4-8.2); TROPONIN I 0.025 ng/ml (<0.045)
[2018-05-30] VITALS: BP 132/60
[2018-05-30 04:00] VITALS: BP 130/58
[2018-05-30 08:00] VITALS: BP 159/75
[2018-05-30 12:00] VITALS: BP 116/65
== END 2018-05-30 14:30 | disposition home or self-care (01) | DRG 871 ==
LOC: ED 02:34 → EDHOLD 03:24 → ICCU 03:24
PROVIDERS: Student in an Organized Health Care Education/Training Program
DX: A41.9 Sepsis, unspecified organism (principal); I50.43 Acute on chronic combined systolic (congestive) and diastolic (congestive) heart failure; J96.01 Acute respiratory failure with hypoxia; J18.9 Pneumonia, unspecified organism; I16.1 Hypertensive emergency; N18.4 Chronic kidney disease, stage 4 (severe); I13.0 Hypertensive heart and chronic kidney disease with heart failure and stage 1 through stage 4 chronic kidney disease, or unspecified chronic kidney disease; R65.20 Severe sepsis without septic shock; E87.8 Other disorders of electrolyte and fluid balance, not elsewhere classified; E83.51 Hypocalcemia; E83.41 Hypermagnesemia; K59.00 Constipation, unspecified; E87.5 Hyperkalemia; I25.10 Atherosclerotic heart disease of native coronary artery without angina pectoris; E11.22 Type 2 diabetes mellitus with diabetic chronic kidney disease; E11.65 Type 2 diabetes mellitus with hyperglycemia; E78.5 Hyperlipidemia, unspecified; J44.9 Chronic obstructive pulmonary disease, unspecified; M19.072 Primary osteoarthritis, left ankle and foot; E66.3 Overweight; Z79.82 Long term (current) use of aspirin; Z87.442 Personal history of urinary calculi; Z79.899 Other long term (current) drug therapy; Z90.49 Acquired absence of other specified parts of digestive tract; Z95.1 Presence of aortocoronary bypass graft; Z95.810 Presence of automatic (implantable) cardiac defibrillator; Z79.4 Long term (current) use of insulin; Z95.5 Presence of coronary angioplasty implant and graft; Z82.49 Family history of ischemic heart disease and other diseases of the circulatory system; Z83.3 Family history of diabetes mellitus; Z68.27 Body mass index [BMI] 27.0-27.9, adult

== ENCOUNTER → 2018-08-16 | Outpatient (CLI) | payer MEDICARE ==
[2018-08-16 12:01] LABS: BASO % 0.5 % (0.0-1.0); EOS # 0.2 10*3/uL (0.0-0.4); EOS % 2.7 % (1.0-4.0); HEMATOCRIT 44.2 % (42.0-52.0); HEMOGLOBIN 14.2 g/dl (14.0-18.0); LYMPH # 1.3 10*3/uL (1.3-4.4); LYMPH % 15.5 % (27.0-41.0); MEAN CELL VOLUME 96.3 fl (80.0-94.0); MEAN CORPUSCULAR HGB 30.9 pg (27.0-31.0); MEAN CORPUSCULAR HGB CONC 32.1 g/dl (33.0-37.0); MEAN PLATELET VOLUME 9.9 fl (9.6-12.3); MONO # 0.9 10*3/uL (0.1-1.0); MONO % 10.9 % (3.0-9.0); NEUT # 5.8 10*3/uL (2.3-7.9); NEUT % 70.2 % (47.0-73.0); PLATELET COUNT AUTOMATED 141 10*3/uL (130-400); RED BLOOD COUNT 4.59 10*6/uL (4.50-5.90); RED CELL DISTRI WIDTH 13.7 % (0-14.5); WHITE BLOOD COUNT 8.2 10*3/uL (4.8-10.8)
[2018-08-16 12:07] LABS: URINE CREATININE RANDOM 71.7 mg/dL
[2018-08-16 12:14] LABS: BILIRUBIN NEGATIVE (NEGATIVE); BLOOD 1+ (NEGATIVE); CLARITY CLEAR (CLEAR); COLOR YELLOW (YELLOW); GLUCOSE NEGATIVE (NEGATIVE); KETONE NEGATIVE (NEGATIVE); LEUKO ESTERASE NEGATIVE (NEGATIVE); NITRITE NEGATIVE (NEGATIVE); SPECIFIC GRAVITY 1.015 (1.005-1.030); UROBILINOGEN 0.2 E.U./dl (0.2-1.0)
[2018-08-16 12:27] LABS: ALBUMIN 3.6 gm/dl (3.1-4.5); CREATININE 2.25 mg/dL (0.70-1.30); PHOSPHOROUS 3.2 mg/dL (2.5-4.9); POTASSIUM 5.2 mmol/L (3.5-5.1)
[2018-08-16 12:46] LABS: BACTERIA TRACE; RBC 16-20 rbc/hpf (0-2)
[2018-08-16 14:14] LABS: VITAMIN D, 25-HYDROXY 35.1 ng/mL (30-100)
== END | disposition home or self-care (01) ==
LOC: LAB 11:20
PROVIDERS: Internal Medicine Nephrology
DX: E55.9 Vitamin D deficiency, unspecified (principal); N18.4 Chronic kidney disease, stage 4 (severe); N25.81 Secondary hyperparathyroidism of renal origin

== ENCOUNTER 2018-08-28 19:07 | Inpatient (IN) | payer MEDICARE ==
[~2018-08-28] VITALS: Ht 172.7 cm; Wt 76.5 kg
[2018-08-28] VITALS (7 sets, daily range): BP systolic 112–180; BP diastolic 66–97
--- NOTE | ~2018-08-28 | PR ---
[place], [place] PROGRESS NOTE [id number] UN[facility] #: [id number] ROOM: 421 DOCTOR: KRISTEN FERREIRA MD BIRTHDATE: [birth year] DOS: 08/30/2018 SUBJECTIVE: The patient was seen by Dr. Royal yesterday. The patient is doing well. He says that he is feeling a lot better. His breathing is significantly improved. Blood pressure is 130/50. I's and O's is negative 120 mL. He denies any chest discomfort. Shortness of breath is better. No nausea. No vomiting. No GI issues. REVIEW OF SYSTEMS: As per HPI, 6-8 systems are reviewed. OBJECTIVE: VITAL SIGNS: Blood pressure is 130/50. NECK: Supple. No JVD. LUNGS: Diminished breath sounds. HEART: Paced rhythm. NEUROLOGIC: He is stable. LABORATORY DATA: Shows hemoglobin of 14.7 and hematocrit of 46. Creatinine is 2.2. Today repeat labs are pending. The ejection fraction is about 35%-40%, history of ICD. IMPRESSION: The patient with worsening of systolic congestive heart failure, chronic kidney disease, hypertension, and atrial fibrillation. The patient may benefit by upgrading to a biventricular ICD. RECOMMENDATIONS: Continue the diuretics as ordered and recommended by Dr. Royal increase activity and we will follow up. KRISTEN FERREIRA MD CM:PNANN MARIE 0751 7 KRISTEN FERREIRA MD 08/30/18 0817 interface
--- NOTE | ~2018-08-28 | EKG ---
[place], [place] ELECTROCARDIOGRAM REPORT NAME: JAMI GUTHRIE UNIT #: [id number] ROOM: 421 DOCTOR: KAREY DRAFT REPORT BIRTHDATE: [birth year] [facility] Test Date: 2018-08-28 Test Time: 19:21:35 Pat Name: JAMI GUTHRIE Department: er Room: 421 Gender: M Gospel Worker: EKG.MARIA E : 1935 Requested By: KEI WALTON Order Number: [id number] Reading MD: Rufina Royal MD Measurements Intervals [place] Rate: 96 P: 0 [place]: 62 QRS: 18 QRSD: 125 T: 231 QT: 365 QTc: 462 Interpretive Statements Sinus rhythm Atrial premature complex Short [place] interval Left bundle branch block Compared to ECG 05/29/2018 08:13:36 Atrial premature complex(es) now present Short [place] interval now present Left bundle-branch block now present Ventricular-paced complex(es) or rhythm no longer present Electronically Signed On 08-29-2018 7:48:12 PST by Rufina Royal MD CM:EKGRPT:ELECTROCARDIOGRAM REPORT 20 0748 KEI MCCRAY DRAFT REPORT KEI WALTON DO
--- NOTE | ~2018-08-28 | CON ---
[place], [place] REPORT OF CONSULTATION NAME: JAMI GUTHRIE UNIT #: [id number] ROOM: 421 DOCTOR: KESHA LEONARD MD BIRTHDATE: [birth year] DOS: 08/29/2018 HISTORY OF PRESENT ILLNESS: This is a delightful 83-year-old [place]ian gentleman whom I have known for some years now. He has a myocardial infarction and was found to have severe coronary artery disease that required a 3-vessel CABG consisting of DONALDSON to LAD, SVG to RCA and sequential to PDA. He had a reduced LV ejection fraction and since it did not improve, he was implanted with a single chamber AICD, which so far has not fired. He has had persistent atrial fibrillation and had been in normal sinus rhythm as well. He has stage 5 kidney disease, which has been fairly stable over the last several months. He has had a chronic systolic heart failure with acute exacerbations, which had resulted in hospitalization a few times. He has essential hypertension, diabetes mellitus type 2 and renal artery stenosis. He does not smoke nor does he drink alcoholic beverages. He lives at home and he tells me that he is very careful with salt intake. He was watching [employer] game yesterday and all of a sudden became short of breath and it persisted, it would not let up, so he came to the Emergency Department. He did not have any palpitations, any chest pain or pressure at the time, no fever, chills or any nausea. He has not had any swelling in the legs. He is a reasonably active man who has exertional shortness of breath, but no orthopnea or PND. HOME MEDICATIONS: Include amlodipine 2.5 mg daily; aspirin 81 daily; atorvastatin 10 daily; carvedilol 6.25 mg b.i.d.; furosemide 20 mg daily, which he told me he does not take; warfarin 4.5 mg daily. PHYSICAL EXAMINATION: GENERAL: This is a patient who is very pleasant, alert, oriented. His complexion is fine. He is not in any distress and is always in a jocular mood. No thyromegaly or finger clubbing. VITAL SIGNS: Temperature 97.1 degrees, pulse is irregular at 84 beats per minute, blood pressure 136/64 and previous blood pressure was 139/55. NECK: JVP is normal. AJR is clearly negative. No bruit in the neck. HEART: There is no cardiomegaly, no murmurs are present. There is no edema at all in the lower extremity. RESPIRATORY: Breath sounds on the percussion note appears to be normal. Auscultation reveals reduced breath sounds, more so in the lower zones. He has crackles in both lungs. ABDOMEN: Liver is not enlarged. It is nontender. There is no organomegaly. No pulsatile masses present. IMAGING DATA: I reviewed the chest x-ray which demonstrates a left pleural effusion and there appeared to have mild pulmonary congestion in the bases. No obvious cephalization is noted. DIAGNOSTIC DATA: An ECG demonstrated a normal sinus rhythm at 96 beats per minute with left bundle-branch block with repolarization abnormalities. LABORATORY DATA: Hemoglobin 14.4 g/dL. BUN 43, creatinine 2.28, which is his [place], [place] REPORT OF CONSULTATION NAME: JAMI GUTHRIE UNIT #: [id number] ROOM: 421 DOCTOR: KESHA LEONARD MD BIRTHDATE: [birth year] baseline. Sodium 144, potassium 4.7. He had a urine output of 1890 mL and intake was not counted. IMPRESSION: 1. This patient has severe ischemic cardiomyopathy. 2. Acute on chronic systolic heart failure is highly likely. I believe chest x-ray is abnormal with radiologist read as unremarkable. 3. Chronic kidney disease stage 5, which is stable. The patient should be given IV furosemide intravenously for the next day or so while monitoring renal function and should go home on p.o. furosemide. If he was not taking any, then 20 mg daily. If he was, then I think the dose should be increased to about 40 mg once a day. I will see him in the office in the next weeks or so. He has a left bundle-branch block, which may mean that he needs to have a single chamber AICD upgraded to biventricular AICD. I thank you for this consult. KESHA LEONARD MD CM:CONSTR:REPORT OF CONSULTATION 1112 08/29/18 1302 interface
[2018-08-28 19:35] LABS: BASO % 0.4 % (0.0-1.0); EOS # 0.3 10*3/uL (0.0-0.4); EOS % 3.1 % (1.0-4.0); HEMOGLOBIN 14.6 g/dl (14.0-18.0); LYMPH # 2.8 10*3/uL (1.3-4.4); LYMPH % 30.3 % (27.0-41.0); MEAN CELL VOLUME 96.8 fl (80.0-94.0); MEAN CORPUSCULAR HGB 30.7 pg (27.0-31.0); MEAN CORPUSCULAR HGB CONC 31.7 g/dl (33.0-37.0); MEAN PLATELET VOLUME 10.2 fl (9.6-12.3); MONO # 0.9 10*3/uL (0.1-1.0); NEUT # 5.2 10*3/uL (2.3-7.9); NEUT % 55.9 % (47.0-73.0); PLATELET COUNT AUTOMATED 148 10*3/uL (130-400); RED BLOOD COUNT 4.75 10*6/uL (4.50-5.90); RED CELL DISTRI WIDTH 13.6 % (0-14.5); WHITE BLOOD COUNT 9.3 10*3/uL (4.8-10.8)
[2018-08-28 19:54] LABS: ALBUMIN 3.7 gm/dl (3.1-4.5); CREATININE 2.37 mg/dL (0.70-1.30); POTASSIUM 5.2 mmol/L (3.5-5.1); TOTAL PROTEIN 7.8 gm/dL (6.4-8.2); TROPONIN I 0.02 ng/ml (<0.045)
[2018-08-28] MEDS ORDERED: NORVASC2.5 MG PO (21:16)
[2018-08-29] VITALS: BP 139/55
[2018-08-29 06:55] LABS: CREATININE 2.28 mg/dL (0.70-1.30); POTASSIUM 4.7 mmol/L (3.5-5.1)
[2018-08-29 08:00] VITALS: BP 136/64
[2018-08-29 12:00] VITALS: BP 118/53
[2018-08-29 16:00] VITALS: BP 127/58
[2018-08-29 20:00] VITALS: BP 119/55
[2018-08-30] VITALS: BP 131/58
[2018-08-30 07:35] LABS: BASO % 0.4 % (0.0-1.0); EOS # 0.2 10*3/uL (0.0-0.4); EOS % 3.1 % (1.0-4.0); HEMATOCRIT 44.5 % (42.0-52.0); HEMOGLOBIN 13.8 g/dl (14.0-18.0); LYMPH # 1.5 10*3/uL (1.3-4.4); LYMPH % 18.9 % (27.0-41.0); MEAN CELL VOLUME 96.3 fl (80.0-94.0); MEAN CORPUSCULAR HGB 29.9 pg (27.0-31.0); MEAN PLATELET VOLUME 10.1 fl (9.6-12.3); MONO % 12.5 % (3.0-9.0); NEUT # 5.1 10*3/uL (2.3-7.9); NEUT % 64.7 % (47.0-73.0); PLATELET COUNT AUTOMATED 121 10*3/uL (130-400); RED BLOOD COUNT 4.62 10*6/uL (4.50-5.90); RED CELL DISTRI WIDTH 13.6 % (0-14.5); WHITE BLOOD COUNT 7.8 10*3/uL (4.8-10.8)
[2018-08-30 08:00] VITALS: BP 138/73; BP 140/76
[2018-08-30 08:07] LABS: ALBUMIN 3.2 gm/dl (3.1-4.5); CREATININE 2.59 mg/dL (0.70-1.30); POTASSIUM 4.6 mmol/L (3.5-5.1); TOTAL PROTEIN 6.9 gm/dL (6.4-8.2)
[2018-08-30] MEDS ORDERED: LASIX40 MG PO (10:01)
[2018-08-30 12:00] VITALS: BP 133/84
== END 2018-08-30 13:19 | disposition home or self-care (01) | DRG 291 ==
LOC: ED 19:07 → EDHOLD 20:06 → 4E 20:06
PROVIDERS: Emergency Medicine; Internal Medicine; Internal Medicine Nephrology
PROC: 5A09357 Assistance with Respiratory Ventilation, Less than 24 Consecutive Hours, Continuous Positive Airway Pressure (ICD-10-PCS; principal; 2018-08-28)
DX: I13.2 Hypertensive heart and chronic kidney disease with heart failure and with stage 5 chronic kidney disease, or end stage renal disease (principal); I50.43 Acute on chronic combined systolic (congestive) and diastolic (congestive) heart failure; J96.00 Acute respiratory failure, unspecified whether with hypoxia or hypercapnia; I48.1 Persistent atrial fibrillation; N18.5 Chronic kidney disease, stage 5; R74.8 Abnormal levels of other serum enzymes; E87.5 Hyperkalemia; E11.65 Type 2 diabetes mellitus with hyperglycemia; I48.2 Chronic atrial fibrillation; E78.5 Hyperlipidemia, unspecified; M19.072 Primary osteoarthritis, left ankle and foot; E11.22 Type 2 diabetes mellitus with diabetic chronic kidney disease; D75.89 Other specified diseases of blood and blood-forming organs; I25.5 Ischemic cardiomyopathy; I25.10 Atherosclerotic heart disease of native coronary artery without angina pectoris; E11.21 Type 2 diabetes mellitus with diabetic nephropathy; J44.9 Chronic obstructive pulmonary disease, unspecified; Z87.442 Personal history of urinary calculi; Z90.49 Acquired absence of other specified parts of digestive tract; Z95.1 Presence of aortocoronary bypass graft; Z95.810 Presence of automatic (implantable) cardiac defibrillator; Z87.891 Personal history of nicotine dependence; Z82.49 Family history of ischemic heart disease and other diseases of the circulatory system; Z83.3 Family history of diabetes mellitus; Z79.899 Other long term (current) drug therapy; Z79.82 Long term (current) use of aspirin; Z79.01 Long term (current) use of anticoagulants; I25.2 Old myocardial infarction

== ENCOUNTER 2018-09-12 | Inpatient (IN) | payer MEDICARE ==
[~2018-09-12] VITALS: Ht 173 cm; Wt 77.8 kg
[2018-09-12] VITALS (9 sets, daily range): BP systolic 84–146; BP diastolic 58–95
[~2018-09-12] MED LIST changes: +LASIX40 MG PO; +NORVASC2.5 MG PO
--- NOTE | ~2018-09-12 | PR ---
[place], [place] PROGRESS NOTE NAME: JAMI GUTHIRE UNIT #: [id number] ROOM: 511 DOCTOR: KESHA LEONARD MD BIRTHDATE: [birth year] DOS: 09/13/2018 SUBJECTIVE: He still has a harsh cough, but is not able to expectorate any sputum. No chest pain or palpitations. His breathing is fine. No swelling of the legs. His other main complaint is that of constipation. He had to manually evacuate this morning. PHYSICAL EXAMINATION: GENERAL: This is a patient who seemed to be miserable because his belly feels full and is constipated. Complexion is fine. VITAL SIGNS: Pulse is irregular. CARDIOVASCULAR: JVP is normal and he has rhonchi and crackles in both lungs with reduced breath sounds in both lungs as well. EXTREMITIES: There is no edema in the lower extremities. IMPRESSION: 1. Severe ischemic cardiomyopathy is well compensated. 2. Coronary artery disease, is asymptomatic. 3. Acute bronchitis. 4. Constipation which seems to be his preoccupation now. KESHA LEONARD MD CM:PNTRANS [phone] KESHA LEONARD MD 09/14/18 0444 interface
--- NOTE | ~2018-09-12 | PR ---
[place], [place] PROGRESS NOTE [id number] UNIT #: [id number] ROOM: 511 DOCTOR: KRISTEN FERREIRA MD BIRTHDATE: [birth year] DOS: 09/20/2018 SUBJECTIVE: The patient was seen by Dr. Royal yesterday. The patient is comfortably sleeping and beta blockers have been increased and his heart rate is 103, down. Atrial fibrillation, chronic. REVIEW OF SYSTEMS: Unremarkable. A 6-8 systems reviewed. PHYSICAL EXAMINATION: VITAL SIGNS: Blood pressure is 120/50. HEENT: Unremarkable. NECK: Supple, no JVD. LUNGS: Diminished air entry. HEART: Sounds are irregularly irregular. ABDOMEN: Soft, nontender. NEUROLOGIC: Appears to be stable. LABORATORY DATA: Hemoglobin 12.8, hematocrit 40.2. Creatinine is 2.8. IMPRESSION: The patient admitted with CHF exacerbation, atrial fibrillation, chronic rapid ventricular response, diabetes, status post coronary artery bypass surgery, history of systolic dysfunction. RECOMMENDATIONS: Continue the present medication, beta blockers has increased to 100 b.i.d. Monitor the heart rate or blood pressure. Continue the anticoagulation and I will follow up. KRISTEN FERREIRA MD CM:MARÍA [phone] KRISTEN FERREIRA MD 09/20/18 0722 interface
--- NOTE | ~2018-09-12 | EKG ---
[place], [place] ELECTROCARDIOGRAM REPORT NAME: JAMI GUTHRIE UNIT #: [id number] ROOM: 511 DOCTOR: KAREY DRAFT REPORT BIRTHDATE: [birth year] [facility] [place] Test Date: 2018-09-12 Test Time: 00:22:34 Pat Name: JAMI GUTHRIE Department: Room: 511 Gender: M Pressure Welder: : 1935 Requested By: CONCEPCION COLEY Order Number: [id number] Reading MD: Rufina Royal MD Measurements Intervals Dexter Rate: 118 P: SC: QRS: 9 QRSD: 122 T: 238 QT: 366 QTc: 514 Interpretive Statements Atrial flutter/ fibrillation Left bundle branch block Compared to ECG 08/28/2018 19:21:35 Sinus rhythm no longer present Atrial premature complex(es) no longer present Short SC interval no longer present Electronically Signed On 09-13-2018 12:39:47 PST by Rufina Royal MD CM:EKGRPT:ELECTROCARDIOGRAM REPORT 0022 1239 CONCEPCION EDEN DRAFT REPORT CONCEPCION COLEY
--- NOTE | ~2018-09-12 | PR ---
[place], [place] PROGRESS NOTE NAME: JAMI GUTHRIE [facility] #: [id number] UNIT #: [id number] ROOM: 511 DOCTOR: ANASTACIO TUBBS MD BIRTHDATE: [birth year] DOS: SUBJECTIVE: The patient has been admitted to the hospital with difficulty in breathing due to congestive heart failure with cardiomyopathy and ischemic heart disease, combined, systolic and diastolic, congestive heart failure, COPD, diabetes mellitus, essential hypertension and history of atrial fibrillation, hyperlipidemia, microcytosis without anemia and renal artery stenosis. The patient is feeling somewhat better today. He says he is breathing better, but he is having some constipation and he has been given medicines for that. The patient denies any chest pain and he says he is breathing somewhat better as compared to yesterday. No nausea, no vomiting. LABORATORY DATA: His metabolic profile today showed glucose 149, BUN 52, creatinine 2.8, GFR 22 indicating chronic renal failure. Other values are normal. Protime is 30.1. MEDICATIONS: The patient is on Coumadin. OBJECTIVE: VITAL SIGNS: His blood pressure is 108/64, pulse 111, respirations 18, temperature 98.1. HEART: Rate is somewhat irregular. LUNGS: Having some basal crepitation in both lungs. EXTREMITIES: No edema of legs. ANASTACIO TUBBS MD CM:PNANN MARIE [phone] ANASTACIO TUBBS MD 09/13/18 1430 interface
--- NOTE | ~2018-09-12 | PR ---
[place], [place] PROGRESS NOTE NAME: JAMI GUTHRIE UNIT #: [id number] ROOM: 511 DOCTOR: KESHA LEONARD MD BIRTHDATE: [birth year] DOS: 09/21/2018 SUBJECTIVE: He did walk in the hallways and the heart rate did speed up, but when he is at rest, the heart rate is in the 70s. He is on Toprol-XL 100 mg t.i.d. now and is tolerating this well. Blood pressure has been pretty steady. He does not feel lethargic. His breathing is fine except when he walks, no swelling of the legs. PHYSICAL EXAMINATION: GENERAL: This reveals the patient is very pleasant, alert. He is oriented, rather jovial, which is his personality. VITAL SIGNS: Pulse is 88, irregular and blood pressure 115/59. NECK: JVP is normal. LUNGS: Breath sounds are severely diminished with lot of inspiratory and expiratory adventitious sounds. EXTREMITIES: No edema of the lower extremities. Monitor shows atrial fibrillation. IMPRESSION: 1. Coronary artery disease, status post coronary artery bypass graft and asymptomatic. 2. Moderately severe ischemic cardiomyopathy. This is compensated. 3. Chronic atrial fibrillation with rather rapid ventricular rate, which is now being obtained with large dose of metoprolol succinate and also digoxin. PLAN: No new recommendations, but do check the patient's digoxin level frequently. I would like to see him in my office in the next couple of weeks. I discussed the case with his nurse. KESHA LEONARD MD CM:PNTRANS [phone] KESHA LEONARD MD 09/22/18 0748 interface
--- NOTE | ~2018-09-12 | PR ---
[place], [place] PROGRESS NOTE [id number] UNIT #: [id number] ROOM: 511 DOCTOR: KESHA LEONARD MD BIRTHDATE: [birth year] DOS: 09/14/2018 SUBJECTIVE: He feels much better, had a bowel movement as well. His appetite is better as well. No shortness of breath at rest, has not had any palpitation. Blood pressure has been very decent. PHYSICAL EXAMINATION: GENERAL: The patient looking in good mood in fact much better than yesterday. VITAL SIGNS: Pulses irregular at 80 beats per minute, blood pressure 110/74. NECK: JVP is normal. LUNGS: Breath sounds are diminished with some crackles, more so on the left base. EXTREMITIES: No edema in lower extremities. IMPRESSION: 1. Ischemic cardiomyopathy is well compensated. 2. Chronic atrial fibrillation with ventricular pacing. 3. Chronic kidney disease. This is stable at stage 5. 4. Coronary artery disease, asymptomatic. The patient can be discharged to home. He will follow up with me as scheduled or earlier if necessary. KESHA LEONARD MD CM:PNTRANS [phone] KESHA LEONARD MD 09/15/18 0256 interface
--- NOTE | ~2018-09-12 | PR ---
[place], [place] PROGRESS NOTE [id number] UN[facility] #: [id number] ROOM: 511 DOCTOR: KESHA LEONARD MD BIRTHDATE: [birth year] DOS: 09/19/2018 SUBJECTIVE: He feels much better, still short of breath when he walks around. He did walk in the hallways. He has not had any palpitations, no chest pain or dizziness and he has a cough with no expectoration. He has chronic atrial fibrillation and recently heart rate has been speeding up with a rate in the 120s to 140s as well. Beta judith was increased. He was given some IV Lopressor earlier as well with some improvement in the heart rate. PHYSICAL EXAMINATION: GENERAL: Reveals a patient who is sitting in a chair, comfortable. He is not tachypneic, not cyanotic. VITAL SIGNS: Pulse is irregular at 112 beats per minute, blood pressure 109/52. NECK: JVP is normal. LUNGS: Breath sounds are diminished with crackles in both lungs. EXTREMITIES: No edema in the lower extremities. Monitor shows atrial fibrillation with a ventricular rate of 106 beats per minute now. ASSESSMENT AND PLAN: 1. Metoprolol was increased to 100 mg b.i.d. today and hopefully this will tame his heart rate adequately. 2. There is no evidence of cardiac decompensation or volume overload. 3. Stage 5 chronic kidney disease with slightly worsening of function. 4. Coronary artery disease, status post coronary artery bypass graft. 5. Severe ischemic cardiomyopathy, compensated. KESHA LEONARD MD CM:PNTRANS [phone] KESHA LEONARD MD 09/20/18 0028 interface
--- NOTE | ~2018-09-12 | PR ---
[place], [place] PROGRESS NOTE NAME: [id number] #: [id number] ROOM: 511 DOCTOR: KESHA LEONARD MD BIRTHDATE: [birth year] DOS: 09/16/2018 SUBJECTIVE: He feels well. He has had a good bowel movement, eating well. He has been walking around without much shortness of breath. No chest pain or palpitations. PHYSICAL EXAMINATION: GENERAL: Mood is good. VITAL SIGNS: Temperature is normal, pulse is 80. Blood pressure 104/66. NECK: JVP is about 8 cm with a positive AJR. CARDIOVASCULAR: Auscultation reveals no murmurs. EXTREMITIES: He has no edema of the lower extremity. RESPIRATORY: Auscultation of the lungs revealed lot of crackles and rhonchi in both lungs with reduced breath sounds. LABORATORY DATA: Chest x-ray done yesterday demonstrated a left basilar pneumonia. No pulmonary edema. IMPRESSION: 1. The patient has severe ischemic cardiomyopathy. 2. Chronic systolic heart failure seems to be adequately compensated, although jugular venous pressure is still high. 3. Chronic kidney disease, which is fairly stable. 4. Anemia. 5. Pneumonia causing some degree of shortness of breath. He has an appointment to see me in a week or so. I will review his medication at that time. He should be discharged on modest degree of loop diuretic. KESHA LEONARD MD CM:PNTRANS [phone] KESHA LEONARD MD 09/17/18 0850 interface
--- NOTE | ~2018-09-12 | CON ---
[place], [place] REPORT OF CONSULTATION NAME: JAMI GUTHRIE UNIT #: [id number] ROOM: 511 DOCTOR: KESHA LEONARD MD BIRTHDATE: [birth year] DOS: 09/12/2018 HISTORY OF PRESENT ILLNESS: This 83-year-old -[place] gentleman is well known to me. He has had a cough for the last 3-4 days or so and the chest rattles a lot and he is wondering why the phlegm is not coming up. He is more short of breath as well. He had no fever or chills and no chest pain or palpitations and has not had any swelling in the legs. He does have quite a bit of shortness of breath when he ambulates. His other main complaint is that he has not been able to have a good bowel movement, seems to be constipated. He is eating and drinking a fair amount of fluids. PAST MEDICAL HISTORY: Coronary artery disease, multivessel coronary artery bypass graft surgery, severe ischemic cardiomyopathy with an EF of around 30% or so. He has an AICD, chronic systolic heart failure with exacerbation, chronic kidney disease stage IV, COPD, diabetes mellitus, essential hypertension, hyperlipidemia, kidney stones, and also had renal artery stenosis diagnosed at one time. He has had cholecystectomy. SOCIAL HISTORY: He does not smoke nor does he drink alcoholic beverages. HOME MEDICATIONS: Include amlodipine 2.5 mg daily, aspirin 81 daily, atorvastatin 10 daily, carvedilol 6.25 mg b.i.d., furosemide 20 mg daily, warfarin 4.5 mg daily. DIAGNOSTIC STUDIES: Atrial fibrillation with rapid ventricular rate of 118 beats per minute and intraventricular conduction defect. The AICD/pacemaker activity is not seen. LABORATORY DATA: Chest x-ray, it was read as showing left-sided pleural effusion and left lower lobe airspace disease. Hemoglobin 13.6 g/dL, potassium 4.0, sodium 139, BUN 54, creatinine 2.71, which is a recent level. IMPRESSION AND PLAN: 1. This patient has severe ischemic cardiomyopathy that is well compensated. 2. Coronary artery disease, status post coronary artery bypass grafting, is asymptomatic. 3. Chronic atrial fibrillation with a controlled rate. 4. AICD device. 5. Chronic kidney disease, stable. 6. Constipation seems to be a main problem for him. 7. Acute bronchitis. Current home medication should be continued. [place], [place] REPORT OF CONSULTATION NAME: JAMI GUTHRIE UNIT #: [id number] ROOM: 511 DOCTOR: KESHA LEONARD MD BIRTHDATE: [birth year] KESHA LEONARD MD CM:CONSTR:REPORT OF CONSULTATION 1127 09/12/18 1721 interface
[2018-09-12] MEDS ORDERED: LASIX20 MG PO (00:05)
[2018-09-12 00:47] LABS: BASO % 0.4 % (0.0-1.0); EOS # 0.3 10*3/uL (0.0-0.4); HEMATOCRIT 42.2 % (42.0-52.0); HEMOGLOBIN 13.6 g/dl (14.0-18.0); LYMPH # 1.5 10*3/uL (1.3-4.4); LYMPH % 14.9 % (27.0-41.0); MEAN CELL VOLUME 95.7 fl (80.0-94.0); MEAN CORPUSCULAR HGB 30.8 pg (27.0-31.0); MEAN CORPUSCULAR HGB CONC 32.2 g/dl (33.0-37.0); MEAN PLATELET VOLUME 9.9 fl (9.6-12.3); MONO # 1.2 10*3/uL (0.1-1.0); MONO % 11.9 % (3.0-9.0); NEUT # 6.8 10*3/uL (2.3-7.9); NEUT % 69.4 % (47.0-73.0); PLATELET COUNT AUTOMATED 159 10*3/uL (130-400); RED BLOOD COUNT 4.41 10*6/uL (4.50-5.90); RED CELL DISTRI WIDTH 13.4 % (0-14.5); WHITE BLOOD COUNT 9.7 10*3/uL (4.8-10.8)
[2018-09-12 01:05] LABS: ALBUMIN 3.4 gm/dl (3.1-4.5); CREATININE 2.71 mg/dL (0.70-1.30); TOTAL PROTEIN 7.3 gm/dL (6.4-8.2); TROPONIN I 0.028 ng/ml (<0.045)
--- NOTE | 2018-09-12 03:20 | NUR ---
PATIENT HEART RATE 130-140'S AT THIS TIME, DR WALTON AWARE.
--- NOTE | 2018-09-12 03:48 | NUR ---
Time: 347 A 83 year old MALE admitted to 5E under services of DR. MIGUE TERRY,[facility]. Pt. arrived via bed from ER. Chief complaint: CHF, ACUTE KIDNEY INJURY. REPORT GIVEN FROM ER NURSE. ASSOCIATE PROFESSOR OF PHILOSOPHY APPLIED TO PT. ALL BELONGINGS ACCOUNTED FOR. HEALTHY LIFESTYLES GUIDE REVIEWED. FABINA BOWERS
--- NOTE | 2018-09-12 05:20 | NUR ---
DR. CAMARENA AWARE OF PT ADMISSION. ORDERS RECIEVED.
--- NOTE | 2018-09-12 08:23 | NUR ---
DR. CAMARENA NOTIFIED THAT HEART RATE IS STAYING IN THE 120'S. NEW ORDERS GIVEN. WILL CONTINUE TO MONITOR
--- NOTE | 2018-09-12 09:21 | NUR ---
DR. LEONARD NOTIFIED OF CONSULT
--- NOTE | 2018-09-12 11:00 | NUR ---
BEDSIDE REPORT OBTAINED FROM BRINDA-RANDY. PATIENT IS AWAKE AND ALERT, AT BEDSIDE WELL, STATED TO ENCOURAGE DEEP BREATHES AND COUGHING AT BEDSIDE. PATIENT HR IS A.FLUTTER IN 140'S PER CM. PRIOR NURSE STATED MORNING MEDICATIONS HAVE NOT BEEN GIVEN YET. PATIENT VOICED NO COMPLAINTS AT THIS TIME, NO S&S OF DISTRESS NOTED. BED IS LOCKED IN LOWEST POSITION.
--- NOTE | 2018-09-12 12:39 | NUR ---
PATIENT IS SUSTAINING A FLUTTER @147BPM PER CM. MORNING MEDICATIONS GIVEN TO PATIENT NOT TOO LONG AGO, AWAITING THEIR EFFECT.
--- NOTE | 2018-09-12 12:59 | NUR ---
PATIENT HR IS STATING TO SLOW DOWN, CURRENTLY A FLUTTER @120 BPM PER CM
--- NOTE | 2018-09-12 14:31 | NUR ---
INFORMED THAT PATIENT PULSE IS BACK UP AGAIN IN 140'S. STATED TO INCREASE COREG TO 12.5MG BID AND GIVE ALSO GIVE A DOSE NOW ALONG WITH LOPRESSOR 5MG IV ONE TIME DOSE.
--- NOTE | 2018-09-12 14:56 | NUR ---
ONE TIME DOSE IV LOPRESSOR AND PO COREG. MANUAL ON=098/64 MXEII=411 PER CM.
--- NOTE | 2018-09-12 15:06 | NUR ---
MBNME=[id number]
--- NOTE | 2018-09-12 16:40 | NUR ---
INFORMED THAT [facility] BP= 84/58 PATIENT IS ASYMPTOMATIC AT THIS TIME. ALSO. INFORMED THAT PATIENT HR WAS IN THE 60'S TRYING TO FLIP FROM A.FLUTTER TO AFIB BUT NOW JUMPED TO 140'S D/T PATIENT EXERTING HIMSELF TO HIM RECLINER. STATED NO NEW ORDERS FOR NOW, INFORMED NEXT SHIFT TO MANUALLY CHECK BP PRIOR TO BP MEDS.
--- NOTE | 2018-09-12 17:34 | NUR ---
PATIENT CURRENTLY AFIB @128 PER CM.
--- NOTE | 2018-09-12 18:28 | NUR ---
PATIENT IS CURRENTLY PACED W/ UNDERLYING AFIB 130-140'S.
[2018-09-13] VITALS: BP 86/58
--- NOTE | 2018-09-13 07:00 | NUR ---
BEDSIDE REPORT ONBTAINED FROM MICHAEL. PATIENT REMOVED MONITOR, WAS PLACED BACK ON PACED W/ UNDERLYING AFIB 90-100'S SHOWING. PATIENT VOICED NO COMPLAINTS AT THIS TIME. NO S&S OF DISTRESS NOTED, RESP ARE ERND ON ROOM AIR. CALL LIGHT LEFT WITHIN REACH.
[2018-09-13 07:33] LABS: CREATININE 2.8 mg/dL (0.70-1.30); POTASSIUM 4.3 mmol/L (3.5-5.1)
[2018-09-13 07:40] LABS: INTERNATIONAL NORM RATIO 2.8 (2.0-3.5)
[2018-09-13 08:00] VITALS: BP 110/68
--- NOTE | 2018-09-13 08:37 | NUR ---
HELD BETTY PER NURSING JUDGEMENT FOR MANUAL BP-110/68. PATIENT IS RECIEVING COREG AT THIS TIME FOR ELEVATED HR.
[2018-09-13 12:00] VITALS: BP 108/64
[2018-09-13 16:00] VITALS: BP 113/60
[2018-09-13 18:44] VITALS: BP 100/72
--- NOTE | 2018-09-13 18:47 | NUR ---
NOTIFIED DR LEONARD RE: PATIENT'S HEART RATE MAINTAINING IN THE 120'S-130'S AND BLOOD PRESSURE OF 100/72.. DR LEONARD STATES IT IS OKAY TO GIVE 2200 DOSE OF COREG 12.5 MG PO NOW. WILL CONTINUE TO MONITOR PATIENT.
[2018-09-13 20:00] VITALS: BP 111/63
--- NOTE | 2018-09-13 20:59 | NUR ---
NOTIFIED DR LEONARD RE: PATIENT'S HEART RATE MAINTAINING 130'S-140'S WITH BLOOD PRESSURE 113/60, PATIENT LAYING IN BED AT REST. DR LEONARD ORDERED 50MG TOPROL XL NOW, 5MG IV LOPRESSOR NOW AND WAIT TEN MINUTES AND IF HEART RATE IS STILL >100 THEN GIVE 5MG MORE OF IV LOPRESSOR. ALSO RECEIVED ORDERS TO DISCONTINUE PATIENT'S COREG AND ORDER 50MG PO TOPROL XL BID. WILL MONITOR PATIENT.
--- NOTE | 2018-09-13 21:49 | NUR ---
PATIENT GIVEN 5MG IV LOPRESSOR, 50MG PO TOPROL XL PER ORDERS AT THIS TIME. WILL MONITOR PATIENT. CALL LIGHT WITHIN REACH.
[2018-09-14] VITALS: BP 110/74
[2018-09-14 08:00] VITALS: BP 136/96
--- NOTE | 2018-09-14 08:30 | NUR ---
Patient resting quietly with no c/o discomfort. Respirations easy and regular. Vital signs stable. No overt distress. CHAUNCEY RICHARDS R
--- NOTE | 2018-09-14 09:00 | NUR ---
Clothing Manager in to talk to patient. Patient states lives at home with his daughter living next door. There are 2 steps in the home. Physician: Dr. Regino Tavera Pharmacy: [facility]: has had in the past but not currently and doesn't remember the name of the company Patient's level of ADLs: INDEPENDENT Patient has working utilities: yes DME: none Follow-up physician's appointment after d/c: he prefers to make his own follow up appt after discharge Does patient want to access PORTAL?: no Discharge plan discussed with patient. He lives at home alone with his daughter living next door. He is independent in his ADLs and ambulation. Discussed home health care services and he denies any home needs at this time. When medically stable he will be discharged to home. NENA JUAREZ
[2018-09-14 12:00] VITALS: BP 100/71
[2018-09-14 16:00] VITALS: BP 98/54
--- NOTE | 2018-09-14 16:00 | NUR ---
Patient resting quietly with no c/o discomfort. Respirations easy and regular. Vital signs stable. No overt distress. CHAUNCEY RICHARDS R
[2018-09-14 20:00] VITALS: BP 124/87
[2018-09-15] VITALS: BP 138/67
[2018-09-15 08:00] VITALS: BP 127/65
--- NOTE | 2018-09-15 12:20 | NUR ---
HOME O2 ASSESSMENT: PRE BP: 117/81, HR 110, RR 18, PULSE OX 95% ON ROOM AIR AT REST. AMBULATED PATIENT ONE FULL LAP IN HALLWAY, PULSE OX 94%-95% ON ROOM AIR THROUGHOUT AMBULATION. POST BP: 149/57, HR 124, RR 20, PULSE OX 97% ON ROOM AIR AT REST. RN NOTIFIED.
[2018-09-15 13:00] VITALS: BP 101/72
[2018-09-15 16:00] VITALS: BP 113/54
[2018-09-15 20:00] VITALS: BP 119/70
--- NOTE | 2018-09-15 20:10 | NUR ---
24 HR chart check completed.
--- NOTE | 2018-09-15 21:00 | NUR ---
SITTING AT BEDSIDE IN RECLINER WITH NO ACUTE DISTRESS NOTED. RESPIRATIONS EASY. LUNGS DIMINISHED WITH FINE PB RALES. PULSE OX 97% RA. CALL LIGHT WITHIN REACH. NO VOICED COMPLAINTS.
--- NOTE | 2018-09-15 23:00 | NUR ---
ANXIOUS, C/O SOB. PULSE OX 95% RA. O2 APPLIED AT 2L FOR COMFORT AT PATIENT REQUEST, PULSE OX 97%. CALL LIGHT WITHIN REACH.
[2018-09-16] VITALS: BP 110/67
--- NOTE | 2018-09-16 00:30 | NUR ---
RESTING WITH EYES CLOSED. RESPIRATIONS EASY. VSS. CALL LIGHT WITHIN REACH
--- NOTE | 2018-09-16 06:30 | NUR ---
AWAKENS THIS AM, REQUESTING O2. ATTEMPTED TO EXPLAIN TO PATIENT THAT HE WAS EVALUATED FOR HOME O2 AND DID NOT QUALIFY. PATIENT STATES "I ALWAYS WEAR O2 HERE." O2 APPLIED AT 2L FOR COMFORT.
[2018-09-16 07:33] LABS: INTERNATIONAL NORM RATIO 3.3 (2.0-3.5)
[2018-09-16 08:00] VITALS: BP 107/70
--- NOTE | 2018-09-16 08:20 | NUR ---
Notified Dr. Zambrano of patient's request for a home nebulizer.
--- NOTE | 2018-09-16 10:30 | NUR ---
DR BONILLA IN TO SEE PT AT THIS TIME.
--- NOTE | 2018-09-16 11:58 | NUR ---
PT OFF FLOOR FOR CT AT THIS TIME.
[2018-09-16 12:00] VITALS: BP 100/81
--- NOTE | 2018-09-16 12:06 | NUR ---
PT RETURNED FROM CXR AT THIS TIME.
[2018-09-16 16:00] VITALS: BP 104/66
--- NOTE | 2018-09-16 16:00 | NUR ---
SPEECH THERAPY IN TO SEE PT AT THIS TIME.
--- NOTE | 2018-09-16 16:15 | NUR ---
SPEECH PATHOLOGY Bedside swallowing evaluation complete per orders due to possible aspiration pneumonia with the following results. Patient altert and sitting upright in chair upon clinician arrival. Patient reports occassional difficulty with swallowing, stating occassional coughing following sips of liquid. No reports of difficulty with solid food. Oral mech exam revealed reduced tongue ROM. Labial strength and ROM, velar function, and volitional throat clear WFL. Patient demonstrated difficulty with volitional swallow, requiring multiple attempts to elicit swallow. Laryngeal elevation judged to be WFL. Patient given ice chips which he demonstrated tolerance of. 1 small, single sip of thin liquid via cup administered with no overt s/s pen/aspiration observed. Patient instructed to take sip of liquid with his natural/regular sip size which elicited a reflexive cough. Patient cued to take additional small, single sips of thin liquid which he demonstrated tolerance of. Patient administered bites of applesauce via tsp and bites of victor hugo cracker. Patient demonstrated tolerance of puree and regular consistency, characterized by no overt s/s pen/aspiration. He required multiple swallows to clear oral cavity but demonstrated functional oral skills. Patient demonstrates tolerance of SMALL, SINGLE SIPS of thin liquid and a regular diet consistency. Patient to utilize universal safe swallowing strategies of small, single sips of liquid, small bites, no straws, and to remain seated upright for 30 minutes following meals. Results and recommendations were shared with patient. Patient able to verbally recall reccommendations and verbalized understanding. Speech Therapy to follow up for short-term treatment to ensure tolerance and safety of recommended diet and use of safe swallowing strategies throughout a meal. Thank you for your consult. Please refer to report in [employer] for additional details. Leilani Hannah MA CF-PULLEY MAN
[2018-09-16 20:00] VITALS: BP 101/62
--- NOTE | 2018-09-16 20:01 | NUR ---
PATIENT IS AAOX3 RESTING IN BED WITH EASY AND REGULAR RESPERS ON ROOM AIR. ASSESSMENT IS COMPLETE WITH NO C/O OR S/S OF DISTRESS NOTED AT THIS TIME. BED IS LOW, LOCKED, AND CALL LIGHT IS WITHIN REACH. SEE SHIFT ASSESSMENT.
--- NOTE | 2018-09-16 22:10 | NUR ---
2200 MEDICATIONS GIVEN AT THIS TIME, PATIENT TOLERATED WELL. CALL LIGHT IS WITHIN REACH.
[2018-09-17] VITALS: BP 123/54
--- NOTE | 2018-09-17 05:21 | NUR ---
PATIENT IS ADAMENT ABOUT LEAVING FACILITY TODAY STATING "I HAVE BEEN HERE FOR 5 HOURS AND HAVE MAYBE GOTTEN 4 HOURS OF SLEEP." PATIENT SEEMS VERY UNHAPPY AND WOULD ALSO LIKE TO DECLINE BREATHING TREATMENTS AT THIS TIME STATING: THOSE HURT MY THROAT"
[2018-09-17 07:10] LABS: BASO % 0.5 % (0.0-1.0); EOS # 0.2 10*3/uL (0.0-0.4); EOS % 2.5 % (1.0-4.0); HEMATOCRIT 40.2 % (42.0-52.0); HEMOGLOBIN 12.8 g/dl (14.0-18.0); LYMPH # 1.3 10*3/uL (1.3-4.4); LYMPH % 15.6 % (27.0-41.0); MEAN CELL VOLUME 95.9 fl (80.0-94.0); MEAN CORPUSCULAR HGB 30.5 pg (27.0-31.0); MEAN CORPUSCULAR HGB CONC 31.8 g/dl (33.0-37.0); MEAN PLATELET VOLUME 10.1 fl (9.6-12.3); MONO # 1.2 10*3/uL (0.1-1.0); NEUT # 5.7 10*3/uL (2.3-7.9); NEUT % 67.2 % (47.0-73.0); PLATELET COUNT AUTOMATED 154 10*3/uL (130-400); RED BLOOD COUNT 4.19 10*6/uL (4.50-5.90); RED CELL DISTRI WIDTH 13.5 % (0-14.5); WHITE BLOOD COUNT 8.4 10*3/uL (4.8-10.8)
[2018-09-17 07:29] LABS: CREATININE 2.86 mg/dL (0.70-1.30); POTASSIUM 4.2 mmol/L (3.5-5.1)
[2018-09-17 08:00] VITALS: BP 114/76
[2018-09-17 12:00] VITALS: BP 98/52
[2018-09-17 16:00] VITALS: BP 131/79
[2018-09-17 20:00] VITALS: BP 103/78
[2018-09-17 22:00] VITALS: BP 112/62
[2018-09-18] VITALS (7 sets, daily range): BP systolic 100–138; BP diastolic 62–78
--- NOTE | 2018-09-18 00:46 | NUR ---
Complained of SOB, requested O2 on. O2 2L n/c applied, POX 96%. States, I just want to sleep but this just grabbed me in mid abdomen area. Will continue to monitor.
--- NOTE | 2018-09-18 18:11 | NUR ---
PATIENT STATES THAT THE DOCTOR TOLD HIM HE COULD HAVE A NEBULIZER FOR HOME.
[2018-09-19] VITALS (7 sets, daily range): BP systolic 102–137; BP diastolic 52–86
--- NOTE | 2018-09-19 07:30 | NUR ---
ASSUMED CARE OF PATIENT AT THIS TIME. RECEIVED REPORT FROM KAY Vernon RN. PATIENT AWAKE AND ALERT LYING IN HIS BED. NO S/S OF DISTRESS. CALL LIGHT WITHIN REACH.
--- NOTE | 2018-09-19 08:29 | NUR ---
SPEECH PATHOLOGY Patient was seen for treatment this am. He was awake and alert, and stated that he was going home today. He was seen for clinical swallowing evaluation last Wednesday therefore this session was conducted as a follow up to ensure understanding and adherence to safe swallow precautions. He was able to recall precaution of small single sips of liquid and he was observed implementing this effectively. Education was also provided regarding universal safe swallow precautions such as upright positioning for meals, eating slowly and in small amounts and remaining upright at least 30 minutes after meals. Patient verbalized understanding of information provided. He reported that he has been implementing strategies and has noted less coughing with meals. Recommend discharge from [facility] at this time as goals are achieved. Thank you for this referral. NAZANIN MIDDLETON MSCCC-DIRECTOR OF INSTRUCTIONAL TECHNOLOGY
--- NOTE | 2018-09-19 12:03 | NUR ---
IN TO SEE PATIENT. STATES TO PLACE LOPRESSOR 15MG PO NOW, LOPRESSOR 5MG IV NOW, GIVE LOPRESSOR 5MG IV IN 1 HOUR IF HEART RATE >100 BPM, INCREASE ROUTINE LOPRESSOR 100MG BID.
--- NOTE | 2018-09-19 12:35 | NUR ---
ORDER CONFIRMED WITH DR LEONARD, METOPROLOL 50MG PO, NOT 15MG.
[2018-09-20] VITALS: BP 120/56
[2018-09-20 07:37] LABS: INTERNATIONAL NORM RATIO 3.7 (2.0-3.5)
--- NOTE | 2018-09-20 09:00 | NUR ---
Central Office Operator in to see patient. No new needs or request at this time. He denies any home needs. When medically stable he will discharged to home.
[2018-09-20 10:42] VITALS: BP 122/62
[2018-09-20 16:00] VITALS: BP 130/84
[2018-09-21] VITALS: BP 136/57
--- NOTE | 2018-09-21 03:03 | NUR ---
24 HR chart check completed.
[2018-09-21 07:40] LABS: INTERNATIONAL NORM RATIO 2.7 (2.0-3.5)
[2018-09-21 08:00] VITALS: BP 118/54
--- NOTE | 2018-09-21 09:00 | NUR ---
Director Software Development in to see patient. No new needs or request at this time. He denies any home needs. When medically stable he will be discharged to home.
--- NOTE | 2018-09-21 10:56 | NUR ---
Face to face encounter with Dr. Zambrano I called Dr. Rosales to update him on run of V-Tach and Tachcardia with ambulation. Dr. Royal ordered labs. See new orders.
[2018-09-21 11:35] LABS: CREATININE 2.96 mg/dL (0.70-1.30); POTASSIUM 4.3 mmol/L (3.5-5.1); TOTAL PROTEIN 7.5 gm/dL (6.4-8.2)
[2018-09-21 12:00] VITALS: BP 115/59
--- NOTE | 2018-09-21 12:14 | NUR ---
Reviewed labs with Dr. Tavera face to face. Per physician, if patient is cleared by Dr. Royal he can be discharged today.
--- NOTE | 2018-09-21 13:31 | NUR ---
Called Dr. Royal regarding lab results and to let him know that patient can be discharged from Dr. Alvarado standpoint. He was unable to talk and will call me back.
--- NOTE | 2018-09-21 14:17 | NUR ---
Called pharmacy to scan Augmentin.
--- NOTE | 2018-09-21 14:36 | NUR ---
Per request of Dr. Zambrano. Tried to contact Dr. Royal regarding clearance for discharge today. Left a message with Dr. Galan nurse.
[2018-09-21 16:00] VITALS: BP 112/61
--- NOTE | 2018-09-21 17:03 | NUR ---
CALLED DR LEONARD TO DETERMINE IF THE PATIENT WAS CLEARED TO GO HOME. DR LEONARD SAID HE WAS ON HIS WAY AND THAT HE WOULD LIKE TO SEE THE PATIENT BEFORE HE IS DISCHARGED. CALLED DR LITTLEJOHN TO LET HER KNOW, AND ALSO TO LET HER KNOW THAT THE PATIENT PREFERS TO BE DISCHARGED TOMORROW INSTEAD OF TODAY DUE TO LIVING ALONE AND IT GETTING DARK OUTSIDE.
[2018-09-21 20:00] VITALS: BP 111/54
--- NOTE | 2018-09-21 22:51 | NUR ---
PATIENT RESTING COMFORTABLY IN HIS BED AT THIS TIME. PATIENT DISPLAYS NO S/S OF DISTRESS. CALL LIGHT WITHIN REACH. RESP EASY. HEART RATE WITHIN NORMAL LIMITS AT THIS TIME. 72 PER CM.
[2018-09-22] VITALS: BP 121/68
--- NOTE | 2018-09-22 00:42 | NUR ---
24 HR chart check completed.
--- NOTE | 2018-09-22 04:52 | NUR ---
PATIENT RESTING COMFORTABLY IN HIS BED. NO S/S OF DISTRESS. EYES CLOSES, RESP EASY. CALL LIGHT WITHIN REACH. MONITOR LEADS INTACT.
[2018-09-22] MEDS ORDERED: LASIX20 MG PO (11:23)
[2018-09-22] MEDS ORDERED: NEBULIZER INH (11:23)
[2018-09-22] MEDS ORDERED: METOPROLOL SUC100 M1 PO (11:23)
[2018-09-22] MEDS ORDERED: Ipratropium Brom3 ML NEB (11:24)
--- NOTE | 2018-09-22 12:05 | NUR ---
Discharge instructions reviewed with patient/family. Patient receptive and verbalizes understanding. Follow-up care arranged. Written instructions given to patient/family. Patient was educated on changed in medications and follow up visits with Dr. Tavera and Dr. Royal. He was wheeled from by staff member and his son with all personal belongings accounted for. CLIFF REICH
[2018-09-22] MEDS ORDERED: DIGOX125 MCG PO (12:38)
[2018-09-22] MEDS ORDERED: AUGMENTIN 500500 MG PO (14:43)
== END 2018-09-22 12:05 | disposition home or self-care (01) | DRG 177 ==
LOC: ED → EDHOLD 02:28 → 5E 02:28
PROVIDERS: Internal Medicine Cardiovascular Disease; Student in an Organized Health Care Education/Training Program; ADMIT Internal Medicine
DX: J69.0 Pneumonitis due to inhalation of food and vomit (principal); I50.43 Acute on chronic combined systolic (congestive) and diastolic (congestive) heart failure; I13.0 Hypertensive heart and chronic kidney disease with heart failure and stage 1 through stage 4 chronic kidney disease, or unspecified chronic kidney disease; N17.9 Acute kidney failure, unspecified; N18.4 Chronic kidney disease, stage 4 (severe); I47.2 Ventricular tachycardia; Z82.49 Family history of ischemic heart disease and other diseases of the circulatory system; E11.65 Type 2 diabetes mellitus with hyperglycemia; I25.10 Atherosclerotic heart disease of native coronary artery without angina pectoris; K59.00 Constipation, unspecified; I25.5 Ischemic cardiomyopathy; I70.1 Atherosclerosis of renal artery; J20.9 Acute bronchitis, unspecified; D64.9 Anemia, unspecified; I48.2 Chronic atrial fibrillation; E11.22 Type 2 diabetes mellitus with diabetic chronic kidney disease; E78.5 Hyperlipidemia, unspecified; F41.9 Anxiety disorder, unspecified; Z79.82 Long term (current) use of aspirin; Z79.01 Long term (current) use of anticoagulants; Z95.1 Presence of aortocoronary bypass graft; Z79.899 Other long term (current) drug therapy; Z90.49 Acquired absence of other specified parts of digestive tract; Z87.891 Personal history of nicotine dependence

== ENCOUNTER 2018-10-04 20:21 | Inpatient (IN) | payer MEDICARE ==
[~2018-10-04] VITALS: Ht 172.7 cm; Wt 83.7 kg
--- NOTE | ~2018-10-04 | PR ---
[place], [place] PROGRESS NOTE [id number] UNIT #: [id number] ROOM: 505 DOCTOR: KRISTEN FERREIRA MD BIRTHDATE: [birth year] DOS: 10/09/2018 SUBJECTIVE: The patient is doing quite well from the cardiac point of view. She denies any chest discomfort. No nausea, no vomiting, diarrhea. The patient wants to go home. Hemodynamically, patient is stable. OBJECTIVE: VITAL SIGNS: Blood pressure is 118/70. HEENT: Unremarkable. NECK: Supple, no JVD. LUNGS: Clear. HEART: Sounds are regular. ABDOMEN: Soft, nontender. NEUROLOGIC: Stable. LABORATORY DATA: Sodium 141, potassium 4.1, and creatinine is 3. IMPRESSION: [id number] congestive heart failure, systolic and diastolic, chronic kidney disease, hypertension, volume overload, diabetes, and dyslipidemia. RECOMMENDATIONS: Continue with the present medications as ordered. Continue the diuretics. Nephrology is following the patient closely and we will follow up. KRISTEN FERREIRA MD CM:PNTRANS [id number] KRISTEN FERREIRA MD 10/09/18 1607 interface
--- NOTE | ~2018-10-04 | PR ---
[place], [place] PROGRESS NOTE NAME: [id number] UNIT #: [id number] ROOM: 505 DOCTOR: KESHA LEONARD MD BIRTHDATE: [birth year] DOS: 10/06/2018 SUBJECTIVE: The patient's main complaint is GI, has not had a bowel movement. He has no chest pain. He felt a little weak and feeling little depressed and despondent. He walked with the physical therapist in the hallways and did not have any lightheadedness or dizziness. His nurse tells me that his blood pressure had been low and was 98/58. Toprol-XL 100 mg t.i.d. was reduced to 50 b.i.d. yesterday. OBJECTIVE: NECK: Normal JVP. LUNGS: Lot of crackles in both lungs as previously noted. EXTREMITIES: No swelling in the lower extremities. Monitor shows atrial fibrillation with rate around 60 or so. IMPRESSION: 1. Chronic atrial fibrillation with very well controlled rate. 2. Blood pressure is on the low side. Diltiazem is being reduced from 60 to 30 mg b.i.d. Low dose of Toprol will be continued. 3. Coronary artery disease with severe ischemic cardiomyopathy. There is no evidence of cardiac decompensation and coronary artery disease is asymptomatic. RECOMMENDATIONS: As mentioned above. KESHA LEONARD MD CM:PNTRANS [id number] KESHA LEONARD MD 10/06/18 1347 interface
--- NOTE | ~2018-10-04 | PR ---
[place], [place] PROGRESS NOTE NAME: JAMI GUTHRIE UNIT #: [id number] ROOM: 505 DOCTOR: NINFA DE LEON MD BIRTHDATE: [birth year] DOS: 10/09/2018 NEPHROLOGY FOLLOWUP NOTE SUBJECTIVE: The patient was seen and examined. He is awake and alert. He feels well. Denies shortness of breath or chest pain. His only major complaint is constipation. Denies fevers or chills. He wants to go home. He is ambulating without difficulty. PHYSICAL EXAMINATION: VITAL SIGNS: Temperature 99.1, pulse 68, respiratory rate 20, blood pressure 103/56. HEENT: Shows no JVD. Mucous membranes are moist. LUNGS: Diminished breath sounds with no wheeze. HEART: S1, S2. No rub, thrill or gallop. ABDOMEN: Soft, nontender. There is no organomegaly, rigidity, rebound, or guarding. EXTREMITIES: Had no edema. SKIN: Showed no rash. LABORATORY DATA: BUN 73, creatinine 2.9, glucose 158. Sodium 141, potassium 4.0, CO2 of 28, calcium of 8.2. ASSESSMENT AND PLAN: 1. Stage 4 chronic kidney disease. The patient has a stable renal function and creatinine is near baseline. Continue ongoing supportive care. He is on a low dose of diuretics. Electrolytes are acceptable. Dose medications for current creatinine clearance. 2. Secondary hyperparathyroidism. The patient is on calcitriol 3 days a week. 3. Congestive heart failure. The patient's volume status appears acceptable. He is on a low dose of diuretics. This may need to be increased potentially in view of his advanced chronic kidney disease. 4. Constipation. Avoid phosphorus and magnesium containing laxatives/suppositories. [place], [place] PROGRESS NOTE NAME: JAMI GUTHRIE UNIT #: [id number] ROOM: 505 DOCTOR: NINFA DE LEON MD BIRTHDATE: [birth year] NINFA DE LEON MD CM:PNTRANS [id number] NINFA DE LEON MD 10/11/18 0718 interface
--- NOTE | ~2018-10-04 | CON ---
[place], [place] REPORT OF CONSULTATION NAME[id number] UNIT #: [id number] ROOM: 505 DOCTOR: KESHA LEONARD MD BIRTHDATE: [birth year] DOS: 10/05/2018 HISTORY OF PRESENT ILLNESS: This is a very pleasant 83-year-old -Cypriot man with a history of coronary artery disease and ischemic cardiomyopathy. He had multivessel CABG done a few years ago and subsequently LV function did not improve much and EF remained below 35 and had a single chamber AICD implanted. He also has COPD and chronic kidney disease with creatinine running close to 3 for quite some time. He has diabetes mellitus, essential hypertension, hyperlipidemia, arthritis, and has a cholecystectomy. He also has chronic atrial fibrillation, which had been a problem when he came to this hospital earlier this month. He had a rapid ventricular rate with a heart rate in the 120s to 130s. He had been on Toprol the dose of which was gradually increased to 100 mg t.i.d., which is a pretty hefty dose along with some digoxin. His rate was controlled; however, it now has caused marked fatigue. He feels tired and rundown. He went to shave his bal today and was barely able to manage. He has exertional shortness of breath, but no chest pain, has not had any loss of consciousness. One of the reasons that he mentions to me is his stomach is bloated with small meals and he also had issue with constipation last time at home as well. He has had chronic shortness of breath with some worsening, but not very much so. HOME MEDICATIONS: Include aspirin 81 daily, atorvastatin 10 daily, digoxin 0.125 mg daily, metoprolol succinate 100 mg t.i.d., furosemide 20 daily, warfarin 4.5 mg daily and DuoNeb treatments as an aerosol preparation. PHYSICAL EXAMINATION: GENERAL: This is a patient who is lying in bed. He is fairly comfortable. He seems lethargic usually. He is very radiant, but seems tired with somewhat of a flat affect. He is not jaundiced. There is no cyanosis or thyromegaly. VITAL SIGNS: Pulse is 64 and irregular, blood pressure 104/60 and 128/79. NECK: JVP is normal. CARDIAC: Auscultation reveals no obvious murmurs. There is no rub. EXTREMITIES: He has no edema in the lower extremities. RESPIRATORY: He is mildly tachypneic. Percussion note is normal. Auscultation reveals a lot of crackles in both lungs on inspiration and expiration. These are chronic. ABDOMEN: It is supple, nontender. There is no bruit. Bowel sounds are normal. DIAGNOSTIC STUDIES: An ECG done on admission demonstrated atrial fibrillation with a ventricular rate of 87 beats per minute and an intraventricular conduction defect. Monitor shows atrial fibrillation with rate in the 70s and 80s. BUN is 66 and creatinine 3.39, last week's creatinine was 2.8. Chest x-ray did not demonstrate any evidence of any pulmonary congestion. [place], [place] REPORT OF CONSULTATION NAME: JAMI GUTHRIE UNIT #: [id number] ROOM: [facility] DOCTOR: KESHA LEONARD MD BIRTHDATE: [birth year] IMPRESSION: 1. This patient has chronic atrial fibrillation with controlled ventricular rate. 2. There is no clinical or radiographic evidence of heart failure. 3. Fatigue, which is rather acute and I think this is most likely due to very high dose of beta blockade. 4. Acute on chronic renal insufficiency/failure. 5. Ischemic cardiomyopathy. 6. Coronary artery disease, status post remote coronary artery bypass grafting. RECOMMENDATIONS: A dose of Toprol-XL is being reduced to 50 mg b.i.d. and I think small dose of diltiazem 60 mg b.i.d. will be added, although this is a negative inotropic drug. If heart rate can be controlled and he is not lethargic, then this course of therapy should be continued. However, if lethargy is a persistent issue, then I think he may benefit from ablation of an atrioventricular (AV) node with upgrading to Bi-V AICD. I discussed this with him and his son. Thank you for this consult. KESHA LEONARD MD CM:CONSTR:REPORT OF CONSULTATION 1136 10/17/18 1037 interface JEYSON CAMARENA MD
--- NOTE | ~2018-10-04 | EKG ---
[place], [place] ELECTROCARDIOGRAM REPORT NAME: JAMI GUTHRIE UNIT #: [id number] ROOM: 505 DOCTOR: KAREY DRAFT REPORT BIRTHDATE: [birth year] [facility] Test Date: 2018-10-04 Test Time: 21:04:30 Pat Name: JAMI GUTHRIE Department: Room: 505 Gender: M Production Supv: : 1935 Requested By: KEI WALTON Order Number: [id number] Reading MD: Rufina Royal MD Measurements Intervals [place] Rate: 87 P: [place]: QRS: -8 QRSD: 120 T: 197 QT: 382 QTc: 460 Interpretive Statements Atrial fibrillation Incomplete left bundle branch block LVH with secondary repolarization abnormality Anterior ST elevation, probably due to LVH Compared to ECG 09/12/2018 00:22:34 Atrial flutter no longer present Electronically Signed On 10-06-2018 9:36:00 PST by Rufina Royal MD CM:EKGRPT:ELECTROCARDIOGRAM REPORT 03 0936 KEI MCCRAY DRAFT REPORT KEI WALTON DO
[~2018-10-04 20:21] MED LIST changes: +AUGMENTIN 500500 MG PO; +DIGOX125 MCG PO; +Ipratropium Brom3 ML NEB; +METOPROLOL SUC100 M1 PO; +NEBULIZER INH
[2018-10-04 20:23] VITALS: BP 139/77
[2018-10-04 21:24] LABS: BASO % 0.3 % (0.0-1.0); EOS # 0.2 10*3/uL (0.0-0.4); EOS % 1.9 % (1.0-4.0); HEMATOCRIT 42.5 % (42.0-52.0); HEMOGLOBIN 13.8 g/dl (14.0-18.0); LYMPH # 1.4 10*3/uL (1.3-4.4); LYMPH % 15.4 % (27.0-41.0); MEAN CELL VOLUME 94.4 fl (80.0-94.0); MEAN CORPUSCULAR HGB 30.7 pg (27.0-31.0); MEAN CORPUSCULAR HGB CONC 32.5 g/dl (33.0-37.0); MEAN PLATELET VOLUME 10.1 fl (9.6-12.3); MONO % 11.1 % (3.0-9.0); NEUT # 6.4 10*3/uL (2.3-7.9); PLATELET COUNT AUTOMATED 187 10*3/uL (130-400); RED CELL DISTRI WIDTH 13.6 % (0-14.5); WHITE BLOOD COUNT 9.1 10*3/uL (4.8-10.8)
[2018-10-04 21:35] LABS: INTERNATIONAL NORM RATIO 2.5 (2.0-3.5)
[2018-10-04 21:43] LABS: ALBUMIN 3.3 gm/dl (3.1-4.5); CREATININE 3.39 mg/dL (0.70-1.30); POTASSIUM 3.9 mmol/L (3.5-5.1); TOTAL PROTEIN 7.1 gm/dL (6.4-8.2)
[2018-10-04 21:44] LABS: TROPONIN I 0.026 ng/ml (<0.045)
[2018-10-04 21:55] LABS: BILIRUBIN NEGATIVE (NEGATIVE); BLOOD TRACE-LYSED (NEGATIVE); CLARITY CLEAR (CLEAR); COLOR YELLOW (YELLOW); GLUCOSE TRACE (NEGATIVE); KETONE NEGATIVE (NEGATIVE); LEUKO ESTERASE TRACE (NEGATIVE); NITRITE NEGATIVE (NEGATIVE); SPECIFIC GRAVITY <= 1.005 (1.005-1.030); UROBILINOGEN 0.2 E.U./dl (0.2-1.0)
[2018-10-04 22:14] LABS: BACTERIA TRACE; EPITHELIAL CELLS 0-2; RBC 0-2 rbc/hpf (0-2)
[2018-10-04 22:50] VITALS: BP 116/65
--- NOTE | 2018-10-04 22:50 | NUR ---
A 83, admitted to , under the services of JEYSON Vargas MD with a diagnosis of ARF AND CHF. Chief complaint is SHORTNESS OF BREATH. Patient arrived via stretcher from ER. Monitor applied. Initial assessment completed. Vital signs taken and recorded. JEYSON VARGAS MD notified of admission to the unit. Orders received. See assessment for past medical history, medications and allergies. Patient and/or family oriented to unit. [facility] visitation policy reviewed. Clothing/patient valuable form completed. ERIK BELLO
[2018-10-04] MEDS ORDERED: WARFARIN SODIUM1 MG PO (23:13)
--- NOTE | 2018-10-04 23:16 | NUR ---
MED REC UP TO DATE PER MED CLAIMS HX AND PATIENT RECALL.
--- NOTE | 2018-10-05 00:32 | NUR ---
IV LASIX ADMINISTERED SLOWLY PER ORDER. PATIENT ENCOURAGED TO USE URINAL SO THAT OUTPUT CAN BE MEASURED. PT VERBALIZES UNDERSTANDING. WILL MONITOR. CALL LIGHT LEFT IN REACH.
--- NOTE | 2018-10-05 01:06 | NUR ---
DR. COTTER NOTIFIED OF MED REC UP TO DATE.
[2018-10-05 04:00] VITALS: BP 128/79
[2018-10-05 04:26] LABS: BASO # 0.1 10*3/uL (0.0-0.1); BASO % 0.6 % (0.0-1.0); EOS # 0.2 10*3/uL (0.0-0.4); HEMATOCRIT 42.7 % (42.0-52.0); HEMOGLOBIN 13.7 g/dl (14.0-18.0); LYMPH # 1.7 10*3/uL (1.3-4.4); MEAN CELL VOLUME 94.7 fl (80.0-94.0); MEAN CORPUSCULAR HGB 30.4 pg (27.0-31.0); MEAN CORPUSCULAR HGB CONC 32.1 g/dl (33.0-37.0); MEAN PLATELET VOLUME 10.1 fl (9.6-12.3); MONO % 11.2 % (3.0-9.0); NEUT # 5.9 10*3/uL (2.3-7.9); PLATELET COUNT AUTOMATED 165 10*3/uL (130-400); RED BLOOD COUNT 4.51 10*6/uL (4.50-5.90); RED CELL DISTRI WIDTH 13.6 % (0-14.5); WHITE BLOOD COUNT 8.8 10*3/uL (4.8-10.8)
[2018-10-05 04:39] LABS: INTERNATIONAL NORM RATIO 2.5 (2.0-3.5)
[2018-10-05 05:10] LABS: ALBUMIN 3.2 gm/dl (3.1-4.5); CREATININE 3.1 mg/dL (0.70-1.30); PHOSPHOROUS 3.9 mg/dL (2.5-4.9); POTASSIUM 3.6 mmol/L (3.5-5.1); TOTAL PROTEIN 6.8 gm/dL (6.4-8.2)
--- NOTE | 2018-10-05 06:13 | NUR ---
'S ANSWERING SERVICE CALLED REGARDING CONSULT. MESSAGE LEFT WITH ANNEALING OVEN OPERATOR LA.
--- NOTE | 2018-10-05 06:18 | NUR ---
NOTIFIED OF CONSULT. STATES HE WILL SEE PATIENT TODAY.
[2018-10-05 07:30] VITALS: BP 104/60
--- NOTE | 2018-10-05 09:00 | NUR ---
Pick Remover in to talk to patient. Patient states lives at home with his daughter living next door. There are 2 steps in the home. Physician: Dr. Regino Tavera Pharmacy: [facility] Home health services: has had in the past but not currently and doesn't remember the name of the company Patient's level of ADLs: INDEPENDENT Patient has working utilities: yes DME: none Follow-up physician's appointment after d/c: he prefers to make his own follow up appt after discharge Does patient want to access PORTAL?: no Discharge plan discussed with patient. He lives at home alone with his daughter living next door. He is independent in his ADLs and ambulation. Discussed home health care services and he denies any home needs at this time. Discussed palliative care and he is agreeable. Dr. Zambrano notified. He When medically stable he will be discharged to home. He has an appt with [facility] on Wednesday at 8:15 am if he is not discharged by then, he would like to see if podiatry can see him while he is an inpatient. NENA JUAREZ
--- NOTE | 2018-10-05 11:48 | NUR ---
Attempted PT evaluation, patient was with the physician. TALHA AustinT
--- NOTE | 2018-10-05 11:55 | NUR ---
Faxed palliative care consult on discharge order to [facility].
--- NOTE | 2018-10-05 11:58 | NUR ---
DR. LYN JOHNSON' ANSWERING SERVICE WAS NOTIFIED OF CONSULT.
--- NOTE | 2018-10-05 11:59 | NUR ---
DR. HAMLIN WAS NOTIFIED OF CONSULT FOR PATIENT.
[2018-10-05 12:00] VITALS: BP 116/52
[2018-10-05 16:00] VITALS: BP 117/66
[2018-10-05 20:00] VITALS: BP 127/82
--- NOTE | 2018-10-05 23:18 | NUR ---
24 HR chart check completed.
[2018-10-06] VITALS: BP 103/61
--- NOTE | 2018-10-06 07:30 | NUR ---
Patient resting quietly with no c/o discomfort. Respirations easy and regular. Vital signs stable. No overt distress. STEPHEN BAPTISTE
[2018-10-06 08:00] VITALS: BP 120/52
--- NOTE | 2018-10-06 08:02 | NUR ---
24 HR chart check completed.
--- NOTE | 2018-10-06 10:00 | NUR ---
[place] Tube Tester in to see patient. No new needs or request at this time. When medically stable he will be discharged to home with palliative care.
--- NOTE | 2018-10-06 10:08 | NUR ---
PHYSICAL THERAPY PROGRESS NOTE: Pt seen for evaluation, with moderate complexity 42722 determined, while on 5th floor. No recommendations following acute care stay. Refer to evaluation for details. Thank you for this referral. Letty Rose, PT
[2018-10-06 10:41] LABS: CREATININE 3.11 mg/dL (0.70-1.30)
--- NOTE | 2018-10-06 10:53 | NUR ---
Occupational Therapy evaluation completed on 5th floor with full eval to follow. Precautions: IV site, SOB. Low complexity level 41271. Patient independent with ADLs. No further occupational therapy services at this time. Recommend: return home when ready. Thank you for this referral, Kaylene Norman OTR/L
--- NOTE | 2018-10-06 11:45 | NUR ---
RN EXPLAINED TO PT THE NEED TO STAY IN BED AT THE MOMENT R/T LOW BP. PT IS UPSET BECAUSE HIS CARDIAC MEDS ARE ADVERSELY AFFECTING THE BP. RN TO F/U WITH DR CAMARENA/HORACIO.
[2018-10-06 12:00] VITALS: BP 98/58
--- NOTE | 2018-10-06 12:00 | NUR ---
Patient resting quietly with no c/o discomfort. Respirations easy and regular. Vital signs stable. No overt distress. STEPHEN BAPTISTE
--- NOTE | 2018-10-06 14:32 | NUR ---
PHYSICAL THERAPY Patient seen this pm 1:1 for therapy visit and was supine in bed upon therapist arrival. Patient was very pleasant, voicing no new c/o's and had several family / friends present during entire therapy session. Patient transfers supine to stand, SBA and ambulates without AD, 100'x 1, SBA, demonstrating slow, steady lidia and no LOB. Patient resting HR 78-80 bpm and only increased slightly to 81-83 bpm during gait ex. Patient also able to walk backwards 5'x 2 without LOB and tolerated eyes open/closed with Fair+ balance. Patient returned to supine in bed and remained with call light, tray table, telephone and bed alarm for safety. Will continue per POC as tolerated, total treatment time 14 minutes. Damien Horowitz, APPLICATIONS COORDINATOR
[2018-10-06 16:00] VITALS: BP 136/54
--- NOTE | 2018-10-06 16:00 | NUR ---
Patient resting quietly with no c/o discomfort. Respirations easy and regular. Vital signs stable. No overt distress. STEPHEN BAPTISTE
--- NOTE | 2018-10-06 17:12 | NUR ---
MESSAGE LEFT FOR LYN JOHNSON NP TO SEE WHEN SHE WILL BE IN PER PT DRS REQUEST.
--- NOTE | 2018-10-06 17:14 | NUR ---
MEDICATED WITH PO DULCOLAX ORDERED PER PT REQUEST FOR C/O CONSTIPATION.
[2018-10-06 20:00] VITALS: BP 125/62
--- NOTE | 2018-10-06 23:57 | NUR ---
24 HR chart check completed.
[2018-10-07] VITALS: BP 113/54
[2018-10-07 07:08] LABS: CREATININE 2.85 mg/dL (0.70-1.30)
[2018-10-07 07:24] LABS: INTERNATIONAL NORM RATIO 3.4 (2.0-3.5)
--- NOTE | 2018-10-07 07:30 | NUR ---
PT ASLEEP IN BED. EASY, NONLABORED RESPIRATIONS NOTED. BED LOW, CALL LIGHT WITHIN REACH.
--- NOTE | 2018-10-07 07:53 | NUR ---
24 HR CHART CHECK COMPLETE.
--- NOTE | 2018-10-07 09:00 | NUR ---
Tipple Oiler in to see patient. No new needs or request at this time. When medically stable he will be discharged to home with palliative care. Palliative care will not be available to see patient in house until October 12. Dr. Zambrano notified.
--- NOTE | 2018-10-07 11:10 | NUR ---
PHYSICAL THERAPY Patient was sleeping this am when first approached for therapy visit and was out of room for CT Scan upon 2nd attmept. Will continue as able per POC this afternoon. Damien Horowitz, ADVANCED MANUFACTURING CONSULTANT
[2018-10-07 12:00] VITALS: BP 113/56
--- NOTE | 2018-10-07 13:33 | NUR ---
PHYSICAL THERAPY Patient was eating lunch on first attmept this pm for therapy visit and was resting comfortably supine in bed upon 2nd attempt. Patient reports feeling too tired following lunch and requested to stay in bed to rest. Will continue per POC as tolerated. Damien Horowitz, TOUCH UP PAINTER HAND
[2018-10-07 16:00] VITALS: BP 128/42
--- NOTE | 2018-10-07 17:11 | NUR ---
GIVEN AMP OF D50 AND ORANGE JUICE FOR OF BSG OF 49 AND PT FOUND TO BE LETHARGIC/DIAPHORETIC.
[2018-10-07 20:00] VITALS: BP 112/74
[2018-10-08] VITALS: BP 119/73
[2018-10-08 06:53] LABS: BASO % 0.4 % (0.0-1.0); EOS # 0.3 10*3/uL (0.0-0.4); EOS % 2.7 % (1.0-4.0); HEMOGLOBIN 14.6 g/dl (14.0-18.0); LYMPH # 1.9 10*3/uL (1.3-4.4); LYMPH % 19.6 % (27.0-41.0); MEAN CELL VOLUME 95.6 fl (80.0-94.0); MEAN CORPUSCULAR HGB 30.4 pg (27.0-31.0); MEAN CORPUSCULAR HGB CONC 31.7 g/dl (33.0-37.0); MEAN PLATELET VOLUME 10.2 fl (9.6-12.3); MONO # 1.1 10*3/uL (0.1-1.0); MONO % 10.7 % (3.0-9.0); NEUT # 6.5 10*3/uL (2.3-7.9); NEUT % 66.3 % (47.0-73.0); PLATELET COUNT AUTOMATED 159 10*3/uL (130-400); RED BLOOD COUNT 4.81 10*6/uL (4.50-5.90); RED CELL DISTRI WIDTH 13.5 % (0-14.5); WHITE BLOOD COUNT 9.9 10*3/uL (4.8-10.8)
[2018-10-08 07:14] LABS: POTASSIUM 4.1 mmol/L (3.5-5.1)
[2018-10-08 07:24] LABS: INTERNATIONAL NORM RATIO 3.8 (2.0-3.5)
[2018-10-08 07:28] LABS: CREATININE 3.01 mg/dL (0.70-1.30); DIGOXIN 0.62 ng/ml (0.8-2.0)
[2018-10-08 08:00] VITALS: BP 116/72
[2018-10-08 12:00] VITALS: BP 118/59
[2018-10-08 16:00] VITALS: BP 115/55
[2018-10-08 20:00] VITALS: BP 114/72; BP 114/73
--- NOTE | 2018-10-08 23:38 | NUR ---
24 HR chart check completed.
[2018-10-09] VITALS: BP 118/53
[2018-10-09 08:00] VITALS: BP 120/58
[2018-10-09 08:19] LABS: CREATININE 2.91 mg/dL (0.70-1.30)
[2018-10-09 08:23] LABS: INTERNATIONAL NORM RATIO 3.5 (2.0-3.5)
--- NOTE | 2018-10-09 08:30 | NUR ---
Patient resting quietly with no c/o discomfort. Respirations easy and regular. Vital signs stable. No overt distress. CHAUNCEY RICHARDS R
[2018-10-09 12:00] VITALS: BP 103/56
[2018-10-09] MEDS ORDERED: DILTIAZEM HCL30 MG PO (15:32)
[2018-10-09] MEDS ORDERED: Cepacol PO (15:32)
[2018-10-09] MEDS ORDERED: HYDROXYZINE PAM25 M1 PO (15:32)
[2018-10-09] MEDS ORDERED: Lanoxin PO (15:32)
[2018-10-09] MEDS ORDERED: TOPROL XL50 M1 PO (15:32)
--- NOTE | 2018-10-09 16:58 | NUR ---
Discharge instructions reviewed with patient/family. Patient receptive and verbalizes understanding. Follow-up care arranged. Written instructions given to patient/family. CHAUNCEY RICHARDS
--- NOTE | 2018-10-10 07:53 | NUR ---
PHYSICAL THERAPY CO-SIGN I approve of the Phyical Therapy notes written above. MACEY CARDOZA PT
--- NOTE | 2018-10-10 12:09 | NUR ---
Faxed [facility] referral
== END 2018-10-09 16:58 | disposition home or self-care (01) | DRG 682 ==
LOC: ED 20:21 → EDHOLD 22:25 → 5E 22:25
PROVIDERS: Emergency Medicine; Family Medicine; Internal Medicine Nephrology; Student in an Organized Health Care Education/Training Program; ADMIT Internal Medicine
PROC: 0HBRXZZ Excision of Toe Nail, External Approach (ICD-10-PCS; principal; 2018-10-05)
DX: N17.0 Acute kidney failure with tubular necrosis (principal); I50.43 Acute on chronic combined systolic (congestive) and diastolic (congestive) heart failure; I13.0 Hypertensive heart and chronic kidney disease with heart failure and stage 1 through stage 4 chronic kidney disease, or unspecified chronic kidney disease; N18.4 Chronic kidney disease, stage 4 (severe); E11.65 Type 2 diabetes mellitus with hyperglycemia; M19.072 Primary osteoarthritis, left ankle and foot; I70.1 Atherosclerosis of renal artery; D53.9 Nutritional anemia, unspecified; I95.9 Hypotension, unspecified; I25.5 Ischemic cardiomyopathy; E21.3 Hyperparathyroidism, unspecified; E78.5 Hyperlipidemia, unspecified; I25.118 Atherosclerotic heart disease of native coronary artery with other forms of angina pectoris; E11.22 Type 2 diabetes mellitus with diabetic chronic kidney disease; E66.3 Overweight; I48.2 Chronic atrial fibrillation; F41.9 Anxiety disorder, unspecified; R07.9 Chest pain, unspecified; K59.04 Chronic idiopathic constipation; R79.1 Abnormal coagulation profile; R00.0 Tachycardia, unspecified; J44.9 Chronic obstructive pulmonary disease, unspecified; Z90.49 Acquired absence of other specified parts of digestive tract; Z95.1 Presence of aortocoronary bypass graft; Z95.810 Presence of automatic (implantable) cardiac defibrillator; Z87.891 Personal history of nicotine dependence; Z95.5 Presence of coronary angioplasty implant and graft; Z82.49 Family history of ischemic heart disease and other diseases of the circulatory system; Z83.3 Family history of diabetes mellitus; Z79.82 Long term (current) use of aspirin; Z68.27 Body mass index [BMI] 27.0-27.9, adult

== ENCOUNTER 2018-11-02 15:20 | Inpatient (IN) | payer MEDICARE ==
[~2018-11-02] VITALS: Ht 172.7 cm; Wt 79.9 kg
--- NOTE | ~2018-11-02 | CON ---
[place], [place] REPORT OF CONSULTATION NAME: JAMI GUTHRIE [facility] #: [id number] UNIT #: [id number] ROOM: 411 DOCTOR: SEGUN ABRAHAM MD BIRTHDATE: [birth year] DOS: 11/04/2018 PULMONARY CONSULTATION, EVALUATION AND MANAGEMENT CONSULTATION REQUESTED BY: Dr. Regino Tavera. REASON FOR CONSULTATION: For assessment of the current loculated left pleural effusion. HISTORY OF PRESENT ILLNESS: This is an 83-year-old white male patient who was admitted to the hospital intermittently for the past 2 months. He has been admitted to the hospital under the care of Dr. Yovany Tavera on the date of 11/02/2018. The patient reported with having symptoms of shortness of breath that occurred at home with symptoms of shortness of breath has been associated with dry and nonproductive cough for several weeks. The patient had been previously admitted to the hospital, stated that he has been told pneumonia one time, and the other times no pneumonia. He has been admitted in the hospital on 09/2018. He has been treated presumably with pneumonia at that time with the CT scan of the chest does show evidence of pleural fluid and infiltration at that time as well. Currently, the patient's main symptom remains shortness of breath with exertion, nonproductive cough. There are no symptoms of chest pain or hemoptysis reported. Denies symptoms of chest trauma as well. Denies symptoms of active wheezing. REVIEW OF SYSTEMS: CONSTITUTIONAL: Denies fatigue. Denies any abnormal weight loss. Denies any symptoms of fever or chills at this time. EYES: Denies any burning, redness, or tenderness. EARS, NOSE, AND THROAT: Denies sore throat, hoarseness, otalgia, postnasal drainage or epistaxis. CARDIOVASCULAR: No angina pain, edema, pain of the lower extremities. GASTROINTESTINAL: Dysphagia, nausea, vomiting, diarrhea, abdominal pain, hematemesis, melena, or hematochezia. GENITOURINARY: No dysuria, suprapubic pain, or hematuria. MUSCULOSKELETAL: No acute joint pain, redness, or tenderness. CENTRAL NERVOUS SYSTEM: No dizziness, diplopia, or syncopal episodes. Remaining systems were reviewed they were noted all negative. PAST MEDICAL HISTORY: 1. Reported as several medical illnesses. The patient that includes permanent atrial fibrillation. 2. Coronary artery disease. 3. Chronic kidney disease stage 4. 4. Congestive heart failure, systolic and diastolic dysfunction, which is compensated at this time. 5. Chronic obstructive pulmonary disease. 6. Type 2 diabetes mellitus. 7. Essential hypertension. 8. Hyperlipidemia. [place], [place] REPORT OF CONSULTATION NAME: JAMI GUTHRIE UNIT #: [id number] ROOM: 411 [facility] [birth year] 9. Osteoarthritis of the left foot. 10. Renal artery stenosis. 11. The ventricular tachycardia, AICD in place. PAST SURGICAL HISTORY: 1. Cholecystectomy. 2. Coronary artery bypass grafting. 3. AICD insertion. 4. The patient has a history of aortic stenosis in the past. 5. Moderate to severe mitral valve regurgitation. 6. Cardiac catheterization. SOCIAL HISTORY: The patient lives at home. Denies history of alcohol use or any illicit drug use. The history of tobacco use was noted half a pack of cigarettes per day, discontinued many years ago. He denies any history of alcohol dependence or illicit drug use. FAMILY HISTORY: Father at the age of 64 years of complication of myocardial infarction. Mother with complication related to cancer. CURRENT MEDICATIONS: Administered for the patient noted as use of Lasix, ferrous sulfate, aspirin, trazodone, hydroxyzine, metoprolol succinate, Cardizem, Lipitor, Coumadin, DuoNeb and Levaquin. DRUG ALLERGIES: Noted as no known drug allergies. PHYSICAL EXAMINATION: GENERAL: An 83-year-old elderly male, currently resting comfortably in the bed, awake, alert, oriented without any distress. Height of the patient is 5 feet 8 inches, weight 173 pounds, and BMI 26. VITAL SIGNS: For the patient which were recorded on admission shows normal temperature and later remains afebrile, respiratory rate 18-20, heart rate 70-74, blood pressure 106/61-122/78. Pulse oxygen saturation recorded as 96% saturation at rest on room air. HEENT: Examination shows head was atraumatic. Eyes nonicterus. NECK: Supple. CARDIOVASCULAR: S1, S2 is audible. LUNGS: The patient was noted with decreased breath sounds in left lower lung. There were no wheezes or crackles. ABDOMEN: Soft, nontender. Bowel sounds present. EXTREMITIES: The patient was noted without any acute edema. MUSCULOSKELETAL: The patient noted without any deformities. CENTRAL NERVOUS SYSTEM: Cranial nerves 2-12 intact. LABORATORY DATA: The several chest x-rays and the CT scan, two of them, which were done in the past 2-1/2 months or so were reviewed. Chest x-ray on 08/29/2018 was not showing any acute abnormalities. The chest x-ray that was done on 09/12/2018 shows evidence of small to moderate pleural fluid with infiltration in the left lower lobe. CT scan of the chest that was done in 09/16/2018 for was also reviewed, shows evidence of bilateral pleural fluid with [place], [place] REPORT OF CONSULTATION NAME: JAMI GUTHRIE UNIT #: [id number] ROOM: [facility] DOCTOR: EMILY SALAZAR MD,[facility] BIRTHDATE: [birth year] infiltration was noted in the lingula and the left lower lobe as well at that time. Chest x-ray that was done on 10/31/2018 shows worsening of the current abnormality with a loculated pleural fluid at this time noted clearly visible. CT scan of the chest was reviewed PACS images on 11/02/2018 shows loculated pleural fluid with thickening of the pleura noted with trapped lung. IMPRESSION: 1. The patient will be admitted to the hospital. The patient most likely has developed acute pneumonia in 08/2018 resulting in current loculated pleural fluid. However, the malignancy would be considered, but appears to be less likely at this time. 2. The patient with multiple medical problems, mostly cardiac related to valvular heart disease, coronary artery disease, congestive heart failure with systolic and diastolic dysfunction and cardiac dysrhythmia with chronic anticoagulation as well. 3. Past history of short term tobacco use, including past intubation and mechanical ventilation. PLAN OF THERAPY: The patient has been continued antibiotic. For further intervention and assessment for more definitive management and diagnostic purpose of the patient, he will require VATS procedure. The patient could be transferred to [facility] for that, reason for patient to have the intervention done the patient is agreeable for that, but later on the patient stated that he does not wish to be transferred to the hospital. Workup started as an outpatient for this patient initially. The case was discussed with Dr. Tavera and the patient's and I am in agreement for the patient to be discharged home on oral antibiotics since he is not showing any signs of sepsis for the patient to have the arrangements made with thoracic surgeon, Dr. Sanchez in [facility] for the current VATS procedure versus mini thoracotomy. The patient would be continued on other treatment therapy, plan of management with further outpatient therapy with chronic medical illnesses to be continued, usual care. Supportive plan of management care and other therapies as in progress without any changes. Thank you for allowing me to participate in the care of this patient. SEGUN DIAZ MD CM:CONSTR:REPORT OF CONSULTATION 1332 11/05/18 0319 interface
--- NOTE | ~2018-11-02 | CON ---
[place], [place] REPORT OF CONSULTATION NAME: JAMI GUTHRIE REDWOOD LLCT #: [id number] UNIT #: [id number] ROOM: 411 DOCTOR: KESHA LEONARD MD BIRTHDATE: [birth year] DOS: 11/03/2018 HISTORY OF PRESENT ILLNESS: This is an 83-year-old -[place] man with a history of coronary artery disease and significant ischemic cardiomyopathy. He had multivessel coronary artery bypass graft surgery a few years ago. His LV function did not improve much. Last LV ejection fraction was about 35%. He has a single chamber AICD that was implanted a while ago. It has never shocked him. He has chronic atrial fibrillation with a fairly controlled ventricular rate when he was in this hospital last and the rate was rather fast and was tamed with the use of beta blockade. He has essential hypertension, hyperlipidemia, type 2 diabetes mellitus and chronic kidney disease, I think stage 4. 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 He also has COPD and that has caused some problem at times. He has had cholecystectomy in the remote past. He was seen by Dr. Tavera in his office. He was somewhat more short of breath than usual, but no dizziness, weakness, or any loss of consciousness. His main problem is marked shortness of breath when he walks in the house, but there has not been any chest pain or heaviness with this. No swelling of the lower extremities. HOME MEDICATIONS: Include DuoNeb treatments, aspirin 81 daily, atorvastatin 10 daily, diltiazem 30 mg b.i.d., furosemide 20 mg p.o. b.i.d., metoprolol succinate 50 mg b.i.d., hydroxyzine 25 mg p.r.n., warfarin 4 mg daily and trazodone 50 mg daily. He is not on an KIMBER inhibitor because of significant renal insufficiency. PHYSICAL EXAMINATION: GENERAL: This is a patient who is alert, oriented. He is fairly comfortable. He is not tachypneic at rest. There is no thyromegaly, finger clubbing, not cyanotic or jaundiced. VITAL SIGNS: Pulse is irregular at 84 beats per minute, blood pressure 125/59. NECK: JVP is normal. AJR is negative. There is no carotid bruit. CARDIAC: Auscultation revealed grade 1-2/6 early peaking systolic murmur over the aortic area. He has no edema at all in the lower extremities. RESPIRATORY: Breath sounds are moderately diminished with quite a few adventitious sounds bilaterally. An ECG shows atrial fibrillation with ventricular rate in the 80s with occasional ventricular pacing and the intensive QRS complexes show a QRS duration of [address] scan did not demonstrate any pulmonary edema, very trivial pleural effusions. LABORATORY DATA: Hemoglobin is 12.9 g/dL, BUN 43, creatinine 2.44, potassium 5.1 which was 5.4 on admission a couple of days ago. IMPRESSION: 1. Coronary artery disease, status post coronary artery bypass graft surgery; [place], [place] REPORT OF CONSULTATION NAME: JAMI GUTHRIE UNIT #: [id number] ROOM: 411 DOCTOR: KESHA LEONARD MD BIRTHDATE: [birth year] this is asymptomatic. 2. Ischemic cardiomyopathy with an ejection fraction of 35%; this is well compensated. 3. Chronic atrial fibrillation, rate is a little fast, perhaps the dose of metoprolol can be increased to 25 mg t.i.d. to control the rate adequately. 4. Chronic kidney disease. This is stable. 5. Mild aneurysm of the ascending aorta. This is not a concern. This patient would qualify for biventricular AICD, i.e., upgrading of the device; if his QRS is greater than 120 milliseconds or he is predominantly pacing in the right ventricle. I thank you for this consult. KESHA LEONARD MD CM:CONSTR:REPORT OF CONSULTATION 1040 11/23/18 0944 interface
--- NOTE | ~2018-11-02 | EKG ---
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
[~2018-11-02 15:20] MED LIST changes: +Cepacol PO; +DILTIAZEM HCL30 MG PO; +HYDROXYZINE PAM25 M1 PO; +Lanoxin PO; +TOPROL XL50 M1 PO; +WARFARIN SODIUM1 MG PO
--- NOTE | 2018-11-02 15:37 | NUR ---
A 83, admitted to , under the services of JEYSON Vargas MD with a diagnosis of CHF PNEUMONIA. Chief complaint is SOB. Patient arrived via wheel chair from [place]. Monitor applied. Initial assessment completed. Vital signs taken and recorded. JEYSON VARGAS MD notified of admission to the unit. Orders received. See assessment for past medical history, medications and allergies. Patient and/or family oriented to unit. [facility] 4 visitation policy reviewed. Clothing/patient valuable form completed. TIFFANY PATIÑO
[2018-11-02] MEDS ORDERED: WARFARIN SODIUM4 MG PO (15:49)
[2018-11-02] MEDS ORDERED: TRAZODONE50 MG PO (15:55)
[2018-11-02] MEDS ORDERED: METOPROLOL SUC100 M1 PO (15:57)
[2018-11-02 16:03] VITALS: BP 153/68
[2018-11-02 16:04] LABS: BASO % 0.4 % (0.0-1.0); EOS # 0.2 10*3/uL (0.0-0.4); EOS % 2.2 % (1.0-4.0); HEMATOCRIT 40.9 % (42.0-52.0); HEMOGLOBIN 13.3 g/dl (14.0-18.0); LYMPH % 12.3 % (27.0-41.0); MEAN CELL VOLUME 94.7 fl (80.0-94.0); MEAN CORPUSCULAR HGB 30.8 pg (27.0-31.0); MEAN CORPUSCULAR HGB CONC 32.5 g/dl (33.0-37.0); MEAN PLATELET VOLUME 9.6 fl (9.6-12.3); MONO # 1.1 10*3/uL (0.1-1.0); MONO % 14.5 % (3.0-9.0); NEUT # 5.5 10*3/uL (2.3-7.9); NEUT % 70.2 % (47.0-73.0); PLATELET COUNT AUTOMATED 155 10*3/uL (130-400); RED BLOOD COUNT 4.32 10*6/uL (4.50-5.90); RED CELL DISTRI WIDTH 13.9 % (0-14.5); WHITE BLOOD COUNT 7.8 10*3/uL (4.8-10.8)
[2018-11-02 16:12] LABS: INTERNATIONAL NORM RATIO 2.1 (2.0-3.5)
[2018-11-02] MEDS ORDERED: METOPROLOL SUCC50 M1 PO (16:23)
[2018-11-02 16:28] LABS: ALBUMIN 3.4 gm/dl (3.1-4.5); CREATININE 2.55 mg/dL (0.70-1.30); PHOSPHOROUS 3.1 mg/dL (2.5-4.9); POTASSIUM 5.1 mmol/L (3.5-5.1); TOTAL PROTEIN 7.4 gm/dL (6.4-8.2)
--- NOTE | 2018-11-02 18:40 | NUR ---
PT PLEASANT COOPERATIVE, IV INSERTED INTO LEFT FOREARM WITH 22G PT TOLERATED WELL. JOKING AND COOPERATIVE AT THIS TIME. FAMILY HAD BEEN PRESENT FOR INTIAL ASSESSMENT SUPPORTIVE.
[2018-11-02 20:00] VITALS: BP 125/52
[2018-11-03] VITALS: BP 125/59
[2018-11-03 06:42] LABS: BASO % 0.4 % (0.0-1.0); EOS # 0.2 10*3/uL (0.0-0.4); EOS % 2.4 % (1.0-4.0); HEMATOCRIT 41.5 % (42.0-52.0); HEMOGLOBIN 12.9 g/dl (14.0-18.0); LYMPH % 14.7 % (27.0-41.0); MEAN CORPUSCULAR HGB 30.1 pg (27.0-31.0); MEAN CORPUSCULAR HGB CONC 31.1 g/dl (33.0-37.0); MEAN PLATELET VOLUME 9.7 fl (9.6-12.3); MONO # 0.8 10*3/uL (0.1-1.0); NEUT # 4.9 10*3/uL (2.3-7.9); NEUT % 70.2 % (47.0-73.0); PLATELET COUNT AUTOMATED 137 10*3/uL (130-400); RED BLOOD COUNT 4.28 10*6/uL (4.50-5.90); RED CELL DISTRI WIDTH 13.8 % (0-14.5); WHITE BLOOD COUNT 6.9 10*3/uL (4.8-10.8)
[2018-11-03 07:08] LABS: ALBUMIN 2.9 gm/dl (3.1-4.5); CREATININE 2.44 mg/dL (0.70-1.30); POTASSIUM 5.1 mmol/L (3.5-5.1); TOTAL PROTEIN 6.7 gm/dL (6.4-8.2)
[2018-11-03 07:54] LABS: FERRITIN 117.4 ng/mL (22.0-322.0); VITAMIN D, 25-HYDROXY 49.2 ng/mL (30-100)
--- NOTE | 2018-11-03 08:30 | NUR ---
PT RESTING IN BED. RESP-EASY AND REGULAR. NO C/O AT THIS TIME. CALL LIGHT IN REACH. SEE SHIFT ASSESSMENT.
--- NOTE | 2018-11-03 09:59 | NUR ---
CALLED DR. LEONARD NOTIFIED OF CONSULT. HE IS SEEING HIM TODAY.
--- NOTE | 2018-11-03 10:30 | NUR ---
DR. LEONARD ON THE FLOOR TO SEE PT.
--- NOTE | 2018-11-03 11:00 | NUR ---
Door Builder in to talk to patient. Patient states lives at home with his daughter living next door. There are 2 steps in the home. Physician: Dr. Regino Tavera Pharmacy: [facility]: has had [facility] in the past but they told him he couldn't drive anymore so he dismissed them Patient's level of ADLs: INDEPENDENT Patient has working utilities: yes DME: none Follow-up physician's appointment after d/c: he prefers to make his own follow up appt after discharge Does patient want to access PORTAL?: no Discharge plan discussed with patient. He lives at home alone with his daughter living next door. He is independent in his ADLs and ambulation. Discussed home health care services and he denies any home needs at this time. Radha, palliative care nurse, saw patient and discussed discharge planning with palliative care services. When medically stable he will be discharged to home. NENA JUAREZ
--- NOTE | 2018-11-03 11:11 | NUR ---
CALLED DR. DIAZ AWARE OF CONSULT.
[2018-11-03 12:00] VITALS: BP 106/61
--- NOTE | 2018-11-03 12:00 | NUR ---
RESTING IN BED. NO C/O AT THIS TIME. CALL LIGHT IN REACH.
--- NOTE | 2018-11-03 14:00 | NUR ---
RESTING IN BED. RESP-EASY AND REGULAR. NO C/O AT THIS TIME. CALL LIGHT IN REACH.
[2018-11-03 16:00] VITALS: BP 126/77
--- NOTE | 2018-11-03 16:30 | NUR ---
PT RESTING IN BED. NO C/O AT THIS TIME. CALL LIGHT IN REACH. SEE SHIFT ASSESSMENT.
--- NOTE | 2018-11-03 18:20 | NUR ---
TOLERATED ROUTINE MED WITH NO PROBLEM. NO C/O AT THIS TIME. CALL LIGHT IN REACH.
[2018-11-03 20:00] VITALS: BP 138/65
--- NOTE | 2018-11-03 20:18 | NUR ---
dulcolax given per pt request for c/o constipation. will monitor.
[2018-11-04] VITALS: BP 134/59
[2018-11-04 07:14] LABS: BASO % 0.6 % (0.0-1.0); EOS # 0.3 10*3/uL (0.0-0.4); EOS % 4.2 % (1.0-4.0); HEMOGLOBIN 12.9 g/dl (14.0-18.0); LYMPH # 1.3 10*3/uL (1.3-4.4); LYMPH % 20.3 % (27.0-41.0); MEAN CELL VOLUME 95.2 fl (80.0-94.0); MEAN CORPUSCULAR HGB 30.7 pg (27.0-31.0); MEAN CORPUSCULAR HGB CONC 32.3 g/dl (33.0-37.0); MONO # 0.9 10*3/uL (0.1-1.0); NEUT # 3.7 10*3/uL (2.3-7.9); NEUT % 59.7 % (47.0-73.0); PLATELET COUNT AUTOMATED 146 10*3/uL (130-400); RED CELL DISTRI WIDTH 14.1 % (0-14.5); WHITE BLOOD COUNT 6.3 10*3/uL (4.8-10.8)
[2018-11-04 07:30] LABS: CREATININE 2.56 mg/dL (0.70-1.30)
[2018-11-04 07:51] VITALS: BP 114/68
[2018-11-04 07:56] LABS: POTASSIUM 4.1 mmol/L (3.5-5.1)
--- NOTE | 2018-11-04 08:00 | NUR ---
PATIENT IS A&OX3 SITTING UP IN BED EATING BREAKFAST. PATIENT IS PLEASANT, COOPERATIVE. DENIES ANY PAIN. WILL CONTINUE TO MONITOR BETSY VIERA
--- NOTE | 2018-11-04 09:00 | NUR ---
Organic Preparation Analyst in to see patient. No new needs or request at this time. He denies any home needs at this time. When medically stable he will be discharged to home with resumption of his palliative care.
[2018-11-04 11:50] VITALS: BP 122/78
[2018-11-04] MEDS ORDERED: LEVAQUIN PO (13:25)
--- NOTE | 2018-11-04 13:32 | NUR ---
PATIENT IN BED RESTING COMFORTABLY. NO COMPLAINTS OF PAIN. KELL, A&OX3. BETSY MONCADA, SPNRCC
--- NOTE | 2018-11-04 14:40 | NUR ---
IV DISCONTINUED, TELEMETRY REMOVED, AND DISCHARGED PAPERS SIGNED.
--- NOTE | 2018-11-04 15:00 | NUR ---
Discharge instructions reviewed with patient/family. Patient receptive and verbalizes understanding. Follow-up care arranged. Written instructions given to patient/family. PATIENT DISCHARGED WITH SON VIS WHEELCHAIR. NASRA NUNES
[2019-01-12] MEDS ORDERED: LIPITOR10 MG PO (17:35)
[2019-01-12] MEDS ORDERED: APLISOL5 TUB UNIT INTRADERM (17:40)
[2019-01-12] MEDS ORDERED: DIGOXIN125 MCG PO (17:41)
[2019-01-12] MEDS ORDERED: DILTIAZEM30 MG PO (17:42)
[2019-01-12] MEDS ORDERED: Oscal,Oyster S500 MG PO (17:44)
[2019-01-12] MEDS ORDERED: COZAAR25 M1 PO (17:44)
[2019-01-12] MEDS ORDERED: ASPIR LOW81 MG PO (17:45)
[2019-01-12] MEDS ORDERED: FUROSEMIDE20 M1 PO (17:47)
[2019-01-12] MEDS ORDERED: VITAMIN D31000 UNI1 PO (17:47)
[2019-01-12] MEDS ORDERED: METOPROLOL SUC200 MG PO (17:48)
[2019-01-12] MEDS ORDERED: METOPROLOL SUC200 M1 PO (17:50)
[2019-01-12] MEDS ORDERED: DOCUSATE SODIU100 M2 PO (17:51)
== END 2018-11-04 15:00 | disposition home or self-care (01) | DRG 194 ==
LOC: 4E 15:20
PROVIDERS: Internal Medicine; Student in an Organized Health Care Education/Training Program; ADMIT Internal Medicine
DX: J18.1 Lobar pneumonia, unspecified organism (principal); N18.4 Chronic kidney disease, stage 4 (severe); I25.810 Atherosclerosis of coronary artery bypass graft(s) without angina pectoris; I50.42 Chronic combined systolic (congestive) and diastolic (congestive) heart failure; I13.0 Hypertensive heart and chronic kidney disease with heart failure and stage 1 through stage 4 chronic kidney disease, or unspecified chronic kidney disease; I48.2 Chronic atrial fibrillation; D64.9 Anemia, unspecified; I77.810 Thoracic aortic ectasia; E11.22 Type 2 diabetes mellitus with diabetic chronic kidney disease; E66.3 Overweight; J43.9 Emphysema, unspecified; K59.04 Chronic idiopathic constipation; R10.9 Unspecified abdominal pain; I08.0 Rheumatic disorders of both mitral and aortic valves; F41.9 Anxiety disorder, unspecified; E87.8 Other disorders of electrolyte and fluid balance, not elsewhere classified; E87.5 Hyperkalemia; E11.65 Type 2 diabetes mellitus with hyperglycemia; I70.1 Atherosclerosis of renal artery; M19.072 Primary osteoarthritis, left ankle and foot; E78.5 Hyperlipidemia, unspecified; Z87.891 Personal history of nicotine dependence; Z95.810 Presence of automatic (implantable) cardiac defibrillator; S37.0 Injury of kidney; Z95.1 Presence of aortocoronary bypass graft; Z79.01 Long term (current) use of anticoagulants; Z82.49 Family history of ischemic heart disease and other diseases of the circulatory system; Z80.9 Family history of malignant neoplasm, unspecified; Z68.26 Body mass index [BMI] 26.0-26.9, adult

== ENCOUNTER 2018-12-20 06:28 | Emergency (ER) | payer MEDICARE ==
[~2018-12-20] VITALS: Ht 172.7 cm; Wt 79.4 kg
--- NOTE | ~2018-12-20 | EKG ---
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1935 Requested By: CORRY SCHAFER Order Number: [id number] Reading MD: Steve Houston MD Measurements Intervals [place] Rate: 106 P: [place]: QRS: 10 QRSD: 111 T: 224 QT: 338 QTc: 449 Interpretive Statements Atrial fibrillation Anteroseptal infarct, old Repol abnrm suggests ischemia, diffuse leads Compared to ECG 11/02/2018 16:09:24 Myocardial infarct finding now present Possible ischemia now present Left bundle-branch block no longer present Left ventricular hypertrophy no longer present Q waves no longer present Electronically Signed On 12-22-2018 11:49:25 PDT by Steve Houston MD CM:EKGRPT:ELECTROCARDIOGRAM REPORT 0701 [id number] CORRY MCCRAY DRAFT REPORT CORRY SCHAFER DO
[~2018-12-20 06:28] MED LIST changes: +LEVAQUIN PO; +METOPROLOL SUCC50 M1 PO; +TRAZODONE50 MG PO; +WARFARIN SODIUM4 MG PO
[2018-12-20 07:12] LABS: BASO % 0.4 % (0.0-1.0); EOS # 0.3 10*3/uL (0.0-0.4); EOS % 3.3 % (1.0-4.0); HEMATOCRIT 42.8 % (42.0-52.0); HEMOGLOBIN 13.7 g/dl (14.0-18.0); LYMPH # 1.3 10*3/uL (1.3-4.4); LYMPH % 15.3 % (27.0-41.0); MEAN CELL VOLUME 97.3 fl (80.0-94.0); MEAN CORPUSCULAR HGB 31.1 pg (27.0-31.0); MEAN PLATELET VOLUME 10.1 fl (9.6-12.3); MONO # 0.7 10*3/uL (0.1-1.0); MONO % 8.7 % (3.0-9.0); NEUT # 6.1 10*3/uL (2.3-7.9); NEUT % 71.9 % (47.0-73.0); PLATELET COUNT AUTOMATED 140 10*3/uL (130-400); RED CELL DISTRI WIDTH 14.2 % (0-14.5); WHITE BLOOD COUNT 8.4 10*3/uL (4.8-10.8)
[2018-12-20 07:21] LABS: ACT PARTIAL THROMBO TIME 32.4 SECONDS (20.8-31.5); INTERNATIONAL NORM RATIO 2.4 (2.0-3.5)
[2018-12-20 07:36] LABS: ALBUMIN 3.3 gm/dl (3.1-4.5); CREATININE 2.7 mg/dL (0.70-1.30); POTASSIUM 4.4 mmol/L (3.5-5.1); TOTAL PROTEIN 7.5 gm/dL (6.4-8.2); TROPONIN I 0.028 ng/ml (<0.045)
[2018-12-20 08:08] VITALS: BP 131/74
[2019-01-12] MEDS ORDERED: LIPITOR10 MG PO (17:35)
[2019-01-12] MEDS ORDERED: APLISOL5 TUB UNIT INTRADERM (17:40)
[2019-01-12] MEDS ORDERED: DIGOXIN125 MCG PO (17:41)
[2019-01-12] MEDS ORDERED: DILTIAZEM30 MG PO (17:42)
[2019-01-12] MEDS ORDERED: COZAAR25 M1 PO (17:44)
[2019-01-12] MEDS ORDERED: Oscal,Oyster S500 MG PO (17:44)
[2019-01-12] MEDS ORDERED: ASPIR LOW81 MG PO (17:45)
[2019-01-12] MEDS ORDERED: FUROSEMIDE20 M1 PO (17:47)
[2019-01-12] MEDS ORDERED: VITAMIN D31000 UNI1 PO (17:47)
[2019-01-12] MEDS ORDERED: METOPROLOL SUC200 MG PO (17:48)
[2019-01-12] MEDS ORDERED: METOPROLOL SUC200 M1 PO (17:50)
[2019-01-12] MEDS ORDERED: DOCUSATE SODIU100 M2 PO (17:51)
== END 2018-12-20 09:51 | disposition home or self-care (01) ==
LOC: ED 06:28
PROVIDERS: Student in an Organized Health Care Education/Training Program
DX: J90 Pleural effusion, not elsewhere classified (principal); E11.22 Type 2 diabetes mellitus with diabetic chronic kidney disease; I13.0 Hypertensive heart and chronic kidney disease with heart failure and stage 1 through stage 4 chronic kidney disease, or unspecified chronic kidney disease; N18.4 Chronic kidney disease, stage 4 (severe); I50.42 Chronic combined systolic (congestive) and diastolic (congestive) heart failure; I48.91 Unspecified atrial fibrillation; I25.10 Atherosclerotic heart disease of native coronary artery without angina pectoris; J44.9 Chronic obstructive pulmonary disease, unspecified; E78.5 Hyperlipidemia, unspecified; Z79.899 Other long term (current) drug therapy; Z95.0 Presence of cardiac pacemaker; Z79.2 Long term (current) use of antibiotics; Z79.82 Long term (current) use of aspirin; Z79.01 Long term (current) use of anticoagulants; Z90.49 Acquired absence of other specified parts of digestive tract; Z87.891 Personal history of nicotine dependence

== ENCOUNTER 2019-01-28 10:14 | Emergency (ER) | payer MEDICARE ==
[~2019-01-28] VITALS: Ht 172.7 cm; Wt 83.5 kg
--- NOTE | ~2019-01-28 | EKG ---
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1935 Requested By: VERNON FAUST Order Number: [id number] Reading MD: Nancy Kimbrough MD Measurements Intervals [place] Rate: 82 P: [place]: QRS: -2 QRSD: 110 T: 191 QT: 350 QTc: 409 Interpretive Statements Atrial fibrillation Anteroseptal infarct, old Repol abnrm suggests ischemia, diffuse leads Compared to ECG 01/12/2019 18:57:15 Ventricular premature complex(es) no longer present Myocardial infarct finding still present Possible ischemia still present Electronically Signed On 02-01-2019 6:13:16 PDT by Nancy Kimbrough MD CM:EKGRPT:ELECTROCARDIOGRAM REPORT 1015 [id number] VERNON EDEN DRAFT REPORT VERNON FAUST M.D.
[~2019-01-28 10:14] MED LIST changes: +APLISOL5 TUB UNIT INTRADERM; +ASPIR LOW81 MG PO; +DIGOXIN125 MCG PO; +DILTIAZEM30 MG PO; +DOCUSATE SODIU100 M2 PO; +FUROSEMIDE20 M1 PO; +METOPROLOL SUC200 M1 PO; +METOPROLOL SUC200 MG PO; +Oscal,Oyster S500 MG PO; +VITAMIN D31000 UNI1 PO
[2019-01-28 10:46] LABS: BASO # 0.1 10*3/uL (0.0-0.1); BASO % 0.5 % (0.0-1.0); EOS # 0.3 10*3/uL (0.0-0.4); EOS % 2.9 % (1.0-4.0); HEMOGLOBIN 11.2 g/dl (14.0-18.0); LYMPH # 0.8 10*3/uL (1.3-4.4); LYMPH % 7.7 % (27.0-41.0); MEAN CELL VOLUME 95.6 fl (80.0-94.0); MEAN CORPUSCULAR HGB 30.6 pg (27.0-31.0); MEAN PLATELET VOLUME 9.5 fl (9.6-12.3); MONO % 9.4 % (3.0-9.0); NEUT # 8.3 10*3/uL (2.3-7.9); NEUT % 78.9 % (47.0-73.0); PLATELET COUNT AUTOMATED 199 10*3/uL (130-400); RED BLOOD COUNT 3.66 10*6/uL (4.50-5.90); RED CELL DISTRI WIDTH 13.8 % (0-14.5); WHITE BLOOD COUNT 10.5 10*3/uL (4.8-10.8)
[2019-01-28 11:07] LABS: ACT PARTIAL THROMBO TIME 42.2 SECONDS (20.0-32.1); INTERNATIONAL NORM RATIO 2.6 (2.0-3.5)
[2019-01-28 11:14] LABS: ALBUMIN 2.6 gm/dl (3.1-4.5); CREATININE 2.66 mg/dL (0.70-1.30); POTASSIUM 4.9 mmol/L (3.5-5.1); TOTAL PROTEIN 7.5 gm/dL (6.4-8.2)
[2019-01-28 11:18] LABS: TROPONIN I 0.032 ng/ml (<0.045)
[2019-01-28 12:34] VITALS: BP 128/64
== END 2019-01-28 13:56 | disposition home or self-care (01) ==
LOC: ED 10:14
PROVIDERS: Emergency Medicine
DX: J44.9 Chronic obstructive pulmonary disease, unspecified (principal); I13.0 Hypertensive heart and chronic kidney disease with heart failure and stage 1 through stage 4 chronic kidney disease, or unspecified chronic kidney disease; E11.22 Type 2 diabetes mellitus with diabetic chronic kidney disease; N18.4 Chronic kidney disease, stage 4 (severe); I48.91 Unspecified atrial fibrillation; I25.10 Atherosclerotic heart disease of native coronary artery without angina pectoris; E78.5 Hyperlipidemia, unspecified; M19.072 Primary osteoarthritis, left ankle and foot; Z87.891 Personal history of nicotine dependence; Z79.899 Other long term (current) drug therapy; Z79.01 Long term (current) use of anticoagulants